=== PATIENT | female | born 1975 | race Caucasian/White ===

== ENCOUNTER 2017-05-20 15:26 | Emergency (ER) | payer SELFPAY ==
[2017-05-20 15:33] VITALS: BP 137/88; PULSE 92; RESP 16; TEMP 97.5
--- NOTE | 2017-05-20 15:53 | ED ---
General Adult HPI - General Chief complaint: ENT Stated complaint: Insect bite/ Eye area Time Seen by Provider: 05/20/17 15:51 Source: patient, RN notes reviewed, old records reviewed Mode of arrival: ambulatory Limitations: no limitations - History of Present Illness Initial comments: Is a 41-year-old female the ER for reevaluation rash. Patient is rest right side of her face around the right eye. Patient states she believes she was having either Bunger mosquito bite, she was has multiple lesions the left side of her face. Patient does admit to some increased swelling of her right lower eyelid last night. Symptoms for 2 days. Mainly complains of itching, no blurry vision no eye pain. - Related Data Home Medications Medication Instructions Recorded Confirmed Albuterol Inhaler [Ventolin Hfa 2 puff INHALATION RT-Q4H PRN 11/15/15 11/15/15 Inhaler] Allergies Allergy/AdvReac Type Severity Reaction Status Date / Time No Known Allergies Allergy Verified 05/20/17 15:33 Review of Systems ROS Statement: Those systems with pertinent positive or pertinent negative responses have been documented in the HPI. ROS Other: All systems not noted in ROS Statement are negative. Past Medical History Additional Past Medical History / Comment(s): 11/15/15 Pt presented to [facility] ER with chest pain and L shoulder pain. She is being admitted with clinical impression of chest pain. Other HX: migraines, sinus problems. History of Any Multi-Drug Resistant Organisms: None Reported Past Surgical History: Cholecystectomy, Tubal Ligation Additional Past Surgical History / Comment(s): 2009 Lap cholecystectomy, cervix surgery to remove precancerous cells, R foot cyst removed Past Anesthesia/Blood Transfusion Reactions: No Reported Reaction Past Psychological History: Depression Smoking Status: Current every day smoker Past Alcohol Use History: Rare Past Drug Use History: None Reported - Past Family History Father Family Medical History: Cancer, COPD, Liver Disease Additional Family Medical History / Comment(s): Father at age 74 from COPD. He had liver cirrhosis and skin cancer. He was an alcoholic. He was a smoker. Mother Family Medical History: COPD Additional Family Medical History / Comment(s): Mother of COPD at the age of 52 yrs. General Exam Limitations: no limitations General appearance: alert, in no apparent distress Head exam: Present: atraumatic, normocephalic, normal inspection Eye exam: Present: normal appearance, PERRL, EOMI, other (Patient does have periorbital cellulitis). Absent: scleral icterus, conjunctival injection, periorbital swelling ENT exam: Present: normal exam, mucous membranes moist Neck exam: Present: normal inspection. Absent: tenderness, meningismus, lymphadenopathy Respiratory exam: Present: normal lung sounds bilaterally. Absent: respiratory distress, wheezes, rales, rhonchi, stridor Cardiovascular Exam: Present: regular rate, normal rhythm, normal heart sounds. Absent: systolic murmur, diastolic murmur, rubs, gallop, clicks GI/Abdominal exam: Present: soft, normal bowel sounds. Absent: distended, tenderness, guarding, rebound, rigid Extremities exam: Present: normal inspection, full ROM, normal capillary refill. Absent: tenderness, pedal edema, joint swelling, calf tenderness Back exam: Present: normal inspection Neurological exam: Present: alert, oriented X3, CN II-XII intact Psychiatric exam: Present: normal affect, normal mood Skin exam: Present: warm, dry, intact, normal color. Absent: rash Course Vital Signs 05/20/17 15:30 Temperature 97.5 F L Pulse Rate 92 Respiratory 16 Rate Blood Pressure 137/88 O2 Sat by Pulse 98 Oximetry Medical Decision Making - Medical Decision Making 41 female here for evaluation of eye rash, patient doesn't periorbital cellulitis and placed on antibiotics, patient also with ALLERGIC reaction to insect bite, will treat with antihistamines for pruritus Disposition Clinical Impression: Urticaria, Cellulitis of right lower eyelid Disposition: HOME SELF-CARE Condition: Good Instructions: Orbital Cellulitis (ED), Urticaria (ED) Referrals: Laureano Castro MD [Primary Care Provider] - 1-2 days
== END 2017-05-20 16:28 | disposition home or self-care (01) ==
LOC: EC 15:26
DX: H00.032 Abscess of right lower eyelid (principal); L50.9 Urticaria, unspecified; T78.49XA Other allergy, initial encounter; F17.200 Nicotine dependence, unspecified, uncomplicated; W57.XXXA Bitten or stung by nonvenomous insect and other nonvenomous arthropods, initial encounter
CPT/HCPCS: 99282

== ENCOUNTER 2017-11-02 20:58 | Emergency (ER) | payer OTHER ==
[2017-11-02] MEDS ORDERED: IPRATROPIUM-ALBUTEROL 3 ML NEB INHALATION STA (21:50)
[2017-11-02] MEDS ORDERED: SODIUM CHLORIDE 0.9% 1,000 ML IV ONE (22:15)
[2017-11-02 22:26] LABS: Basophils % (A) 0 %; Eosinophils # (A) 0.1 k/uL (0-0.7); Eosinophils % (A) 1 %; HCT 41.3 % (34.0-46.0); HGB 13.2 gm/dL (11.4-16.0); Lymphocytes # (A) 2.3 k/uL (1.0-4.8); Lymphocytes % (A) 29 %; MCH 30.1 pg (25.0-35.0); MCHC 31.9 g/dL (31.0-37.0); MCV 94.3 fL (80.0-100.0); Mean Platelet Volume 7.8; Monocytes # (A) 0.5 k/uL (0-1.0); Monocytes % (A) 6 %; Neutrophils # (A) 4.9 k/uL (1.3-7.7); Neutrophils % (A) 62 %; Platelet Count 194 k/uL (150-450); RBC 4.38 m/uL (3.80-5.40); RDW 13.8 % (11.5-15.5); WBC 7.9 k/uL (3.8-10.6)
[2017-11-02 22:35] LABS: ALT 28 U/L (9-52); AST 23 U/L (14-36); Alkaline Phosphatase 116 U/L (38-126); Anion Gap 12 mmol/L; Blood Urea Nitrogen 15 mg/dL (7-17); Calcium 8.8 mg/dL (8.4-10.2); Carbon Dioxide 24 mmol/L (22-30); Chloride 106 mmol/L (98-107); Glucose 119 mg/dL (74-99); Potassium 4.3 mmol/L (3.5-5.1); Sodium 142 mmol/L (137-145); Total Bilirubin 0.2 mg/dL (0.2-1.3); Total Protein 7.1 g/dL (6.3-8.2)
[2017-11-02 22:39] LABS: D-Dimer 0.86 mg/L FEU (<0.60); Partial Thromboplastin Time 24.8 sec (22.0-30.0); Prothrombin Time 9.8 sec (9.0-12.0)
--- NOTE | 2017-11-02 22:41 | XR ---
EXAMINATION TYPE: XR chest 2V DATE OF EXAM: 11/02/2017 COMPARISON: 11/15/2015 HISTORY: Cough TECHNIQUE: Frontal and lateral views of the chest are obtained. FINDINGS: There is a new minimal infiltrate in the right midlung probably in the right middle lobe c ompared to old exam. Heart and mediastinum are normal. There is no pleural effusion. The pulmonary vascularity is normal. Bony thorax is intact. CONCLUSION: New mild right middle lobe pneumonia compared to old exam.
--- NOTE | 2017-11-02 22:48 | ED ---
SOB HPI - General Chief Complaint: Upper Respiratory Infection Stated Complaint: CHRIS Time Seen by Provider: 11/02/17 21:25 Source: patient Mode of arrival: ambulatory Limitations: no limitations - History of Present Illness Initial Comments: This patient is a 42-year-old woman who presents to be evaluated for cough and dyspnea. The patient's symptoms have been going on for approximately 3 days. The patient states that the very first thing that had come on was nausea and vomiting which went on Sunday night last about 6 hours before resolving. She states that after that she had cough and dyspnea and felt that she may have a little bit of a wheeze going on. She states that the symptoms reminded her of which she would see her mother going through when her mother's COPD flare. Patient does have moderate smoking history but denies previous diagnosis of COPD. Patient denies chest pain. Patient denies any leg pain or swelling though she did have a flight from [place] on Sunday. MD Complaint: shortness of breath, cough Onset/Timin -: days(s) Severity: mild Consistency: constant Improves With: nothing Worsens With: nothing Associated Symptoms: cough Treatments Prior to Arrival: none - Related Data Home Medications Medication Instructions Recorded Confirmed Promethazine/Dextromethorphan 5 ml PO Q6H PRN 11/02/17 11/02/17 [Promethazine-Dm Syrup] Previous Rx's Medication Instructions Recorded Albuterol Inhaler [Ventolin Hfa 1 - 2 puff INHALATION Q6HR PRN #1 11/03/17 Inhaler] inhaler Azithromycin [Zithromax Z-pack] 250 mg PO DIRECTED #6 tab 11/03/17 Allergies Allergy/AdvReac Type Severity Reaction Status Date / Time No Known Allergies Allergy Verified 11/02/17 21:37 Review of Systems ROS Statement: Those systems with pertinent positive or pertinent negative responses have been documented in the HPI. ROS Other: All systems not noted in ROS Statement are negative. Constitutional: Denies: fever, chills Respiratory: Reports: cough, dyspnea. Denies: wheezes, hemoptysis, stridor Cardiovascular: Denies: chest pain, palpitations, orthopnea, edema, syncope Gastrointestinal: Reports: nausea, vomiting. Denies: abdominal pain, diarrhea, melena, hematochezia Genitourinary: Denies: dysuria, hematuria Musculoskeletal: Denies: back pain Skin: Denies: rash Neurological: Denies: headache, weakness, numbness Past Medical History Additional Past Medical History / Comment(s): 11/15/15 Pt presented to [facility] ER with chest pain and L shoulder pain. She is being admitted with clinical impression of chest pain. Other HX: migraines, sinus problems. History of Any Multi-Drug Resistant Organisms: None Reported Past Surgical History: Cholecystectomy, Tubal Ligation Additional Past Surgical History / Comment(s): 2009 Lap cholecystectomy, cervix surgery to remove precancerous cells, R foot cyst removed Past Anesthesia/Blood Transfusion Reactions: No Reported Reaction Past Psychological History: Anxiety, Depression Smoking Status: Current every day smoker Past Alcohol Use History: Rare Past Drug Use History: None Reported - Past Family History Father Family Medical History: Cancer, COPD, Liver Disease Additional Family Medical History / Comment(s): Father at age 74 from COPD. He had liver cirrhosis and skin cancer. He was an alcoholic. He was a smoker. Mother Family Medical History: COPD Additional Family Medical History / Comment(s): Mother of COPD at the age of 52 yrs. General Exam Limitations: no limitations General appearance: alert, in no apparent distress Eye exam: Present: normal appearance. Absent: scleral icterus, conjunctival injection Neck exam: Present: normal inspection Respiratory exam: Present: normal lung sounds bilaterally, wheezes. Absent: respiratory distress, rales, rhonchi, stridor Cardiovascular Exam: Present: regular rate, normal rhythm, normal heart sounds. Absent: systolic murmur, diastolic murmur, rubs, gallop GI/Abdominal exam: Present: soft. Absent: distended, tenderness, guarding, rebound, mass Extremities exam: Present: normal inspection, normal capillary refill. Absent: pedal edema, calf tenderness Back exam: Present: normal inspection. Absent: CVA tenderness (R), CVA tenderness (L) Neurological exam: Present: alert Skin exam: Present: warm, dry, intact, normal color. Absent: rash Course Vital Signs 11/02/17 11/02/17 11/02/17 21:10 21:47 22:01 Temperature 97.8 F Pulse Rate 78 84 Respiratory 20 20 Rate Blood Pressure 142/70 O2 Sat by Pulse 97 Oximetry 11/02/17 22:11 Temperature Pulse Rate 88 Respiratory Rate Blood Pressure O2 Sat by Pulse Oximetry Medical Decision Making - Lab Data Result diagrams: 11/02/17 22:15 11/02/17 22:15 Lab Results 11/02/17 11/02/17 11/02/17 Range/Units 22:15 22:15 22:15 WBC 7.9 (3.8-10.6) k/uL RBC 4.38 (3.80-5.40) m/uL Hgb 13.2 (11.4-16.0) gm/dL Hct 41.3 (34.0-46.0) % MCV 94.3 (80.0-100.0) fL MCH 30.1 (25.0-35.0) pg MCHC 31.9 (31.0-37.0) g/dL RDW 13.8 (11.5-15.5) % Plt Count 194 (150-450) k/uL Neutrophils % 62 % Lymphocytes % 29 % Monocytes % 6 % Eosinophils % 1 % Basophils % 0 % Neutrophils # 4.9 (1.3-7.7) k/uL Lymphocytes # 2.3 (1.0-4.8) k/uL Monocytes # 0.5 (0-1.0) k/uL Eosinophils # 0.1 (0-0.7) k/uL Basophils # 0.0 (0-0.2) k/uL PT 9.8 (9.0-12.0) sec INR 1.0 (<1.2) APTT 24.8 (22.0-30.0) sec D-Dimer 0.86 H (<0.60) mg/L FEU Sodium 142 (137-145) mmol/L Potassium 4.3 (3.5-5.1) mmol/L Chloride 106 (98-107) mmol/L Carbon Dioxide 24 (22-30) mmol/L Anion Gap 12 mmol/L BUN 15 (7-17) mg/dL Creatinine 0.80 (0.52-1.04) mg/dL Est GFR (MDRD) Af Amer >60 (>60 ml/min/1.73 sqM) Est GFR (MDRD) Non-Af >60 (>60 ml/min/1.73 sqM) Glucose 119 H (74-99) mg/dL Calcium 8.8 (8.4-10.2) mg/dL Total Bilirubin 0.2 (0.2-1.3) mg/dL AST 23 (14-36) U/L ALT 28 (9-52) U/L Alkaline Phosphatase 116 (38-126) U/L Troponin I (0.000-0.034) ng/mL Total Protein 7.1 (6.3-8.2) g/dL Albumin 4.0 (3.5-5.0) g/dL Influenza Type A RNA (Not Detectd) Influenza Type B (PCR) (Not Detectd) 11/02/17 11/02/17 Range/Units 22:15 22:15 WBC (3.8-10.6) k/uL RBC (3.80-5.40) m/uL Hgb (11.4-16.0) gm/dL Hct (34.0-46.0) % MCV (80.0-100.0) fL MCH (25.0-35.0) pg MCHC (31.0-37.0) g/dL RDW (11.5-15.5) % Plt Count (150-450) k/uL Neutrophils % % Lymphocytes % % Monocytes % % Eosinophils % % Basophils % % Neutrophils # (1.3-7.7) k/uL Lymphocytes # (1.0-4.8) k/uL Monocytes # (0-1.0) k/uL Eosinophils # (0-0.7) k/uL Basophils # (0-0.2) k/uL PT (9.0-12.0) sec INR (<1.2) APTT (22.0-30.0) sec D-Dimer (<0.60) mg/L FEU Sodium (137-145) mmol/L Potassium (3.5-5.1) mmol/L Chloride (98-107) mmol/L Carbon Dioxide (22-30) mmol/L Anion Gap mmol/L BUN (7-17) mg/dL Creatinine (0.52-1.04) mg/dL Est GFR (MDRD) Af Amer (>60 ml/min/1.73 sqM) Est GFR (MDRD) Non-Af (>60 ml/min/1.73 sqM) Glucose (74-99) mg/dL Calcium (8.4-10.2) mg/dL Total Bilirubin (0.2-1.3) mg/dL AST (14-36) U/L ALT (9-52) U/L Alkaline Phosphatase (38-126) U/L Troponin I <0.012 (0.000-0.034) ng/mL Total Protein (6.3-8.2) g/dL Albumin (3.5-5.0) g/dL Influenza Type A RNA Not Detected (Not Detectd) Influenza Type B (PCR) Detected H (Not Detectd) Disposition Clinical Impression: Pneumonia Disposition: HOME SELF-CARE Condition: Good Instructions: Pneumonia (ED) Prescriptions: Albuterol Inhaler [Ventolin Hfa Inhaler] 1 - 2 puff INHALATION Q6HR PRN #1 inhaler PRN Reason: Wheezing Azithromycin [Zithromax Z-pack] 250 mg PO DIRECTED #6 tab Referrals: Hang Sheth MD [Primary Care Provider] - 1-2 days
[2017-11-02] MEDS ORDERED: RX INFO: IV CONTRAST WAS GIVEN 1 EACH MISC MISCELLANE PRN (23:05)
[2017-11-02] MEDS ORDERED: cefTRIAXone IN SWFI 1,000 MG/10 ML SYRINGE IVP STA (23:06)
[2017-11-02] MEDS ORDERED: AZITHROMYCIN 500 MG TAB PO STA (23:06)
--- NOTE | 2017-11-02 23:37 | CT ---
EXAMINATION TYPE: CT chest angio for PE DATE OF EXAM: 11/02/2017 COMPARISON: NONE HISTORY: COGH,CONGESTION, ELEVATED D-DIMER CT DLP: 490.80 mGycm Automated exposure control for dose reduction was used. CONTRAST: CT Chest for pulmonary embolism performed with with IV Contrast, patient injected with 70 mL of Omnip aque 350. FINDINGS: There are 3-D post processed images. The lungs are clear of consolidation. There is no evidence of a pulmonary mass. There is no pleural e ffusion. There are enlarged mediastinal paratracheal lymph nodes. The largest measures 1.5 cm. Thoracic aorta is intact. There is no sign of aneurysm or dissection. There are bilateral bronchial lymph nodes that measure up to 1.1 cm. Heart size is normal. There is no pericardial effusion. There is some patchy r eticular and groundglass interstitial infiltrate in the right middle lobe. I see no filling defects in the pulmonary arteries. The bony thorax is intact. IMPRESSION: No evidence of pulmonary embolism. There is a patchy right middle lobe pulmonary infiltrate probably related to pneumonia. Mild mediastinal and bronchial adenopathy.
[2017-11-03 00:56] VITALS: BP 173/76; PULSE 88; RESP 17; TEMP 97.5
== END 2017-11-03 00:56 | disposition home or self-care (01) ==
LOC: EC 20:58
DX: J18.9 Pneumonia, unspecified organism (principal); F17.200 Nicotine dependence, unspecified, uncomplicated
CPT/HCPCS: 36415; 94640; 85379; 80053; 84484; 85025; 85610; 85730; 87502; 71046; 71275; 99284; 96374; 96361; Q9967; J0696

== ENCOUNTER 2019-07-12 19:11 | Emergency (ER) | payer OTHER ==
[2019-07-12 19:23] VITALS: RESP 18
[2019-07-12] MEDS ORDERED: SODIUM CHLORIDE 0.9% 1,000 ML IV STA (19:43)
[2019-07-12] MEDS ORDERED: diphenhydrAMINE 50 MG/ML 1 ML VIAL IVP STA (19:43)
[2019-07-12] MEDS ORDERED: METOCLOPRAMIDE 5 MG/ML 2 ML VIAL IVP STA (19:43)
--- NOTE | 2019-07-12 20:06 | ED ---
General Adult HPI - General Chief complaint: Headache Stated complaint: migraine Time Seen by Provider: 07/12/19 19:24 Source: patient, RN notes reviewed Mode of arrival: ambulatory Limitations: no limitations - History of Present Illness Initial comments: 44-year-old female with a past medical history of migraines, sinusitis presents to the emergency department for a chief complaint of headache. Patient states this headache started Sunday. States that she has pain only with walking. States her baseline pain resting at this time is 2 out of 10. However she states that with walking it increases. Patient has a history of migraines. Patient does admit to sinus congestion. Denies visual changes. Denies maximal intensity at onset. Admits to light sensitivity. Patient has no other complaints at this time including shortness of breath, chest pain, abdominal pain, nausea or vomiting, or visual changes. - Related Data Home Medications Medication Instructions Recorded Confirmed Promethazine/Dextromethorphan 5 ml PO Q6H PRN 11/02/17 11/02/17 [Promethazine-Dm Syrup] Previous Rx's Medication Instructions Recorded Albuterol Inhaler [Ventolin Hfa 1 - 2 puff INHALATION Q6HR PRN #1 11/03/17 Inhaler] inhaler Azithromycin [Zithromax Z-pack] 250 mg PO DIRECTED #6 tab 11/03/17 Allergies Allergy/AdvReac Type Severity Reaction Status Date / Time No Known Allergies Allergy Verified 07/12/19 19:23 Review of Systems ROS Statement: Those systems with pertinent positive or pertinent negative responses have been documented in the HPI. ROS Other: All systems not noted in ROS Statement are negative. Past Medical History Past Medical History: No Reported History Additional Past Medical History / Comment(s): 11/15/15 Pt presented to [facility] ER with chest pain and L shoulder pain. She is being admitted with clinical impression of chest pain. Other HX: migraines, sinus problems. History of Any Multi-Drug Resistant Organisms: None Reported Past Surgical History: Cholecystectomy, Tubal Ligation Additional Past Surgical History / Comment(s): 2009 Lap cholecystectomy, cervix surgery to remove precancerous cells, R foot cyst removed Past Anesthesia/Blood Transfusion Reactions: No Reported Reaction Past Psychological History: Anxiety, Depression Smoking Status: Current every day smoker Past Alcohol Use History: None Reported Past Drug Use History: None Reported - Past Family History Father Family Medical History: Cancer, COPD, Liver Disease Additional Family Medical History / Comment(s): Father at age 74 from COPD. He had liver cirrhosis and skin cancer. He was an alcoholic. He was a smoker. Mother Family Medical History: COPD Additional Family Medical History / Comment(s): Mother of COPD at the age of 52 yrs. General Exam Limitations: no limitations General appearance: alert, in no apparent distress Head exam: Present: atraumatic, normocephalic, normal inspection Eye exam: Present: normal appearance, PERRL, EOMI. Absent: scleral icterus, conjunctival injection, periorbital swelling ENT exam: Present: normal exam, normal oropharynx, mucous membranes moist, TM's normal bilaterally, normal external ear exam Neck exam: Present: normal inspection, full ROM. Absent: tenderness, meningismus, lymphadenopathy Respiratory exam: Present: normal lung sounds bilaterally. Absent: respiratory distress, wheezes, rales, rhonchi, stridor Cardiovascular Exam: Present: regular rate, normal rhythm, normal heart sounds. Absent: systolic murmur, diastolic murmur, rubs, gallop, clicks Neurological exam: Present: alert, oriented X3, CN II-XII intact, normal gait, other (GCS 15) Psychiatric exam: Present: normal affect, normal mood Course Vital Signs 07/12/19 07/12/19 19:20 20:00 Temperature 98.0 F Pulse Rate 101 H Respiratory 18 Rate Blood Pressure 123/70 O2 Sat by Pulse 95 98 Oximetry Medical Decision Making - Medical Decision Making 44-year-old female presents for headache. Patient has had migraines before. This does feel slightly different. However patient rates her pain at a 2 out of 10 with rest. States it increases with walking only. Blood work was done. CBC shows a mild psychosis, likely reactive. CMP is unremarkable. CT brain shows no acute intracranial process. Patient was given fluids, Reglan, Benadryl. I reevaluated patient and she states her pain at a 0 with rest. I walked with patient down the hallway and she states that she has no recurrence of the pain like she did before. States she is feeling much better. Has no other complaints and again rating her pain at a 0. In fact patient was offered T oradol and refused because she did not need it. Patient will be discharged home to follow up with primary care. However did discuss strict return parameters. - Lab Data Result diagrams: 07/12/19 20:00 07/12/19 20:00 Lab Results 07/12/19 07/12/19 07/12/19 Range/Units 20:00 20:00 20:00 WBC 14.2 H (3.8-10.6) k/uL RBC 4.46 (3.80-5.40) m/uL Hgb 13.4 (11.4-16.0) gm/dL Hct 40.3 (34.0-46.0) % MCV 90.3 (80.0-100.0) fL MCH 30.1 (25.0-35.0) pg MCHC 33.4 (31.0-37.0) g/dL RDW 13.9 (11.5-15.5) % Plt Count 316 (150-450) k/uL Neutrophils % 58 % Lymphocytes % 34 % Monocytes % 4 % Eosinophils % 2 % Basophils % 1 % Neutrophils # 8.2 H (1.3-7.7) k/uL Lymphocytes # 4.8 (1.0-4.8) k/uL Monocytes # 0.5 (0-1.0) k/uL Eosinophils # 0.3 (0-0.7) k/uL Basophils # 0.1 (0-0.2) k/uL PT 9.6 (9.0-12.0) sec INR 0.9 (<1.2) APTT 24.3 (22.0-30.0) sec Sodium 139 (137-145) mmol/L Potassium 5.0 (3.5-5.1) mmol/L Chloride 109 H (98-107) mmol/L Carbon Dioxide 24 (22-30) mmol/L Anion Gap 6 mmol/L BUN 12 (7-17) mg/dL Creatinine 0.66 (0.52-1.04) mg/dL Est GFR (CKD-EPI)AfAm >90 (>60 ml/min/1.73 sqM) Est GFR (CKD-EPI)NonAf >90 (>60 ml/min/1.73 sqM) Glucose 105 H (74-99) mg/dL Calcium 9.4 (8.4-10.2) mg/dL Total Bilirubin 0.3 (0.2-1.3) mg/dL AST 23 (14-36) U/L ALT 14 (9-52) U/L Alkaline Phosphatase 111 (38-126) U/L Total Protein 7.4 (6.3-8.2) g/dL Albumin 4.0 (3.5-5.0) g/dL Disposition Clinical Impression: Headache Disposition: HOME SELF-CARE Condition: Good Instructions (If sedation given, give patient instructions): Acute Headache (ED) Additional Instructions: Please take Tylenol for pain. Follow-up with primary care in 1-2 days. If youre having worsening symptoms or have recurrence of headaches return to the emergency department. Is patient prescribed a controlled substance at d/c from ED?: No Referrals: Hang Sheth MD [Primary Care Provider] - 1-2 days Time of Disposition: 21:05
[2019-07-12 20:10] LABS: Basophils # (A) 0.1 k/uL (0-0.2); Basophils % (A) 1 %; Eosinophils # (A) 0.3 k/uL (0-0.7); Eosinophils % (A) 2 %; HCT 40.3 % (34.0-46.0); HGB 13.4 gm/dL (11.4-16.0); Lymphocytes # (A) 4.8 k/uL (1.0-4.8); Lymphocytes % (A) 34 %; MCH 30.1 pg (25.0-35.0); MCHC 33.4 g/dL (31.0-37.0); MCV 90.3 fL (80.0-100.0); Mean Platelet Volume 6.6; Monocytes # (A) 0.5 k/uL (0-1.0); Monocytes % (A) 4 %; Neutrophils # (A) 8.2 k/uL (1.3-7.7); Neutrophils % (A) 58 %; Platelet Count 316 k/uL (150-450); RBC 4.46 m/uL (3.80-5.40); RDW 13.9 % (11.5-15.5); WBC 14.2 k/uL (3.8-10.6)
--- NOTE | 2019-07-12 20:17 | CT ---
EXAMINATION TYPE: CT brain wo con DATE OF EXAM: 07/12/2019 COMPARISON: 11/09/2014 INDICATION: CALZADA x3 days DLP: 1099.4 mGycm, Automated exposure control for dose reduction was used. CONTRAST: None CT of the brain is performed utilizing 3 mm thick sections through the posterior fossa and 3 mm thick sections through the remaining calvarium. Study is performed within 24 hours of arrival to the hosp [facility]. No abnormal hyperdensity is present to suggest an acute intracranial hemorrhage. No mass lesion is evident. No acute infarcts are evident. Ventricles and sulci are appropriate for the patient age. Paranasal sinuses and mastoid air cells within the [id number] are clear. IMPRESSIONS: 1. No acute intracranial process.
[2019-07-12 20:19] LABS: ALT 14 U/L (9-52); AST 23 U/L (14-36); African American GFR (CKD) >90 (>60 ml/min/1.73 sqM); Alkaline Phosphatase 111 U/L (38-126); Anion Gap 6 mmol/L; Blood Urea Nitrogen 12 mg/dL (7-17); Calcium 9.4 mg/dL (8.4-10.2); Carbon Dioxide 24 mmol/L (22-30); Chloride 109 mmol/L (98-107); Glucose 105 mg/dL (74-99); INR 0.9 (<1.2); Partial Thromboplastin Time 24.3 sec (22.0-30.0); Prothrombin Time 9.6 sec (9.0-12.0); Sodium 139 mmol/L (137-145); Total Bilirubin 0.3 mg/dL (0.2-1.3); Total Protein 7.4 g/dL (6.3-8.2)
[2019-07-12] MEDS ORDERED: KETOROLAC 30 MG/ML 1 ML VIAL IVP STA (20:29)
[2019-07-12 21:14] VITALS: BP 113/67; PULSE 70; TEMP 98
== END 2019-07-12 21:13 | disposition home or self-care (01) ==
LOC: EC 19:11
DX: R51 Headache (principal); F29 Unspecified psychosis not due to a substance or known physiological condition; F17.200 Nicotine dependence, unspecified, uncomplicated; Z86.69 Personal history of other diseases of the nervous system and sense organs
CPT/HCPCS: 36415; 80053; 85025; 85610; 85730; 70450; 99284; 96374; 96375; 96361; J1200; J2765

== ENCOUNTER → 2020-08-18 | Outpatient (CLI) | payer BC, OTHER | END | disposition home or self-care (01) | LOC: LABWHC1 11:33 | PROVIDERS: ATTEND Nurse Practitioner Family | DX: Z20.828 Contact with and (suspected) exposure to other viral communicable diseases (principal) | CPT/HCPCS: U0003; C9803 ==

== ENCOUNTER → 2023-12-18 | Outpatient (CLI) | payer BC ==
--- NOTE | 2023-12-20 09:40 | MM ---
Reason for Exam: Screening (asymptomatic). Patient History: Menarche at age 13. First Full-Term at age 24. Perimenopausal. Risk Values: Mariely 5 year model risk: 0.8%. NCI Lifetime model risk: 8.4%. Tissue Density: There are scattered areas of fibroglandular density. Findings: Analyzed By CAD. There is no suspicious group of microcalcifications. Asymmetric density inner central right breast approximately 4.3 cm from the nipple requires additional evaluation. Overall Assessment: Incomplete: need additional imaging evaluation, BI-RAD 0 Management: Diagnostic Mammogram of the right breast. . Patient should continue monthly self-breast exams. A clinical breast exam by your physician is recommended on an annual basis. This exam should not preclude additional follow-up of suspicious palpable abnormalities. Note on Mariely scores and lifetime risk: 1. A Mariely score greater than 3% is considered moderate risk. If this is the case, consider specialist referral to assess eligibility for a risk reducing agent. 2. If overall lifetime risk for the development of breast cancer is 20% or higher, the patient may qualify for future screening with alternating mammogram and breast MRI. Electronically signed and approved by: Faizan Yancey M.D. Radiologis
== END | disposition home or self-care (01) ==
LOC: RADMAMWWP 15:57
PROVIDERS: ATTEND Family Medicine
DX: Z12.31 Encounter for screening mammogram for malignant neoplasm of breast (principal)
CPT/HCPCS: 77063; 77067

== ENCOUNTER → 2023-12-21 | Outpatient (CLI) | payer BC ==
--- NOTE | 2023-12-21 08:00 | MM ---
Reason for Exam: Additional evaluation requested from abnormal screening. Last screening mammogram was performed less than 1 month ago. Patient History: Menarche at age 13. First Full-Term at age 24. Perimenopausal. Last menstrual period: 12/05/2023 Risk Values: Mariely 5 year model risk: 0.8%. NCI Lifetime model risk: 8.4%. Prior Study Comparison: 12/18/2023 Bilateral MG 3D screening mammo w/cad, [facility]. Tissue Density: Right: There are scattered areas of fibroglandular density. Findings: Analyzed By CAD. Approximately 6.5 cm from the nipple in her upper quadrant approximately 1-2 o'clock is an 8 mm persistent density. Ultrasound is recommended. Overall Assessment: Incomplete: need additional imaging evaluation, BI-RAD 0 Management: Diagnostic Breast Ultrasound of the right breast. . Results were given to the patient verbally at the time of exam. Patient should continue monthly self-breast exams. A clinical breast exam by your physician is recommended on an annual basis. This exam should not preclude additional follow-up of suspicious palpable abnormalities. Note on Mariely scores and lifetime risk: 1. A Mariely score greater than 3% is considered moderate risk. If this is the case, consider specialist referral to assess eligibility for a risk reducing agent. 2. If overall lifetime risk for the development of breast cancer is 20% or higher, the patient may qualify for future screening with alternating mammogram and breast MRI. Electronically signed and approved by: Faizan Yancey M.D. Radiologis
--- NOTE | 2023-12-21 08:45 | USB ---
Reason for Exam: Additional evaluation requested from abnormal screening. Patient History: Menarche at age 13. First Full-Term at age 24. Perimenopausal. Risk Values: Mariely 5 year model risk: 0.8%. NCI Lifetime model risk: 8.4%. Technique: Method: Targeted. Prior Study Comparison: 12/18/2023 Bilateral MG 3D screening mammo w/cad, [facility]. Findings: The upper inner quadrant of the right breast, the axilla of the right breast and the retroareolar of the right breast were scanned. Vague, fairly well marginated hypoechoic lesion at the right 1:00 position 6 cm from the nipple measuring 9 x 4 mm. Tissue diagnosis is recommended. Overall Assessment: Suspicious, BI-RAD 4 Management: Ultrasound Core Biopsy of the right breast. A clinical breast exam by your physician is recommended on an annual basis and results should be correlated with mammographic findings. This exam should not preclude additional follow-up of suspicious palpable abnormalities. Results were given to the patient verbally at the time of exam. Electronically signed and approved by: Haroldo Lopez D.O. Radiologis
== END | disposition home or self-care (01) ==
LOC: RADMAMWWP 07:35
PROVIDERS: ATTEND Family Medicine
DX: R92.321 Mammographic fibroglandular density, right breast (principal)
CPT/HCPCS: 77061; 77065

== ENCOUNTER → 2023-12-31 | Day surgery (SDC) | payer BC ==
--- NOTE | 2024-01-04 08:35 | MM ---
Reason for Exam: Post Procedure Mammogram. Last screening mammogram was performed less than 1 month ago. Patient History: Menarche at age 13. First Full-Term at age 24. Perimenopausal. Risk Values: Mariely 5 year model risk: 0.8%. NCI Lifetime model risk: 8.4%. Prior Study Comparison: 12/18/2023 Bilateral MG 3D screening mammo w/cad, [facility]. 12/21/2023 Right MG 3D work up w/cad RT, [facility]. Tissue Density: Right: There are scattered areas of fibroglandular density. Pathology Description: Location: 1 o'clock, upper inner quadrant. Marker Left Behind. Needle Type: Mammotome Cores: 4 Skin Nicks: 1 Gauge: 13 The procedure of ultrasound guided core biopsy was explained to the patient. Benefits, alternatives, and risks were discussed. An informed consent was then obtained. A timeout was performed. The patient was placed in supine positioning for imaging and for the procedure. The overlying skin was prepped and draped in usual sterile fashion. Lidocaine was used as anesthetic into the skin and subcutaneous tissue up to area of concern in the right breast. A small skin les was made with surgical scalpel. Under ultrasound guidance, a 12-gauge vacuum assisted biopsy gun device was used to obtain 4 core samples. A biopsy clip was left in lesion. Hydromark butterfly core marker was placed. The patient tolerated the procedure well without any immediate complication. The patient was kept in the radiology department for short stay after the procedure and then discharged home in stable condition. Postprocedure mammogram: The patient was transferred to mammography for physician ordered post procedure mammogram for clip placement verification. Clip is in the expected region of the biopsy Impression: Successful ultrasound guided core biopsy of area of concern in the right breast, full pathology results to follow. Recommendations: 1. Recommendations are pending pathology results. Pathology Results: Result: Benign, Fibrocystic change. Pathology and radiology were reviewed. Findings are concordant. RIGHT BREAST, 1:00, ULTRASOUND GUIDED CORE BIOPSY: Proliferative fibrocystic change with fibrosis, columnar cell change and adenosis (see note). Notes Per EMR: it is noted the patient has imaging evidence of a vague lesion/density within the approximate 1:00 position of the right breast. The current specimen shows fibrocystic change with nodular areas of adenosis associated with mild chronic inflammation. The current case is carefully examined, and there are no diagnostic features of malignancy seen within the current case. Clinical correlation with imaging studies is suggested, as deemed clinically appropriate. Overall Assessment: Benign Assessment: MG diagnostic mammo RT wo CAD - Right: Benign, BI-RAD 2. Management: Diagnostic Mammogram of the right breast in 6 months. Electronically signed and approved by: Haroldo Lopez D.O. Radiologis
== END ==
LOC: RADUSWWP 12:36
PROVIDERS: ATTEND Surgery
DX: N60.21 Fibroadenosis of right breast (principal)
CPT/HCPCS: 88305; 77065; 19083; A4648

== ENCOUNTER → 2024-01-10 | Outpatient (CLI) | payer BC ==
[2024-01-10 09:27] VITALS: BP 180/93; PULSE 87; RESP 17; TEMP 98.4
--- NOTE | 2024-01-10 09:45 | P.GSCN ---
History of Present Illness Consult date: 01/10/24 Reason for Consult: abnormal right breast ultrasound Requesting physician: Hang Sheth History of present illness: Cris is a 48 year old female seen in consultation for Dr. Hang Sheth regarding a right breast ultrasound biopsy done on 12-31-23. She had a bilateral mammogram on 12-18-23, which led to a right breast ultrasound on 12-21-23. No lesions of concern were noted in the left breast. The right breast u ltrasound was done on 01-20-24 which showed a vague hypoechoic lesion at 1:00. Ultrasound core biopsy showed benign fibrocystic changes, this was felt to be benign concordant. The films were personally reviewed. The patient did not feel any lumps masses or nodules of concern in either breast. She has never had surgery on either breast. She did not have any recent trauma or infection in the breast. She was not complaining of any nipple discharge or skin changes. Caffeine: 2 cups/day, pop 20 oz/daily nicotine: 1 PPD since chocolate: occasional BCP: none Family History: father: skin and bone cancer patient: pre-cancer cells on cervix Hormonal History: menarche: 13 , breast fed: no, age at first : 23 periods irregular;LMP: 2 weeks ago hormones: none Surgical History: right foot cervix part removed gallbladder tubal Medical History: anxiety obesity History: Nicotine: 1 pack/day Alcohol: Negative Drugs: Negative Review of Systems - Constitutional Denies fever, Denies weight loss - EENT EENT Comment(s): cataract surgery Eyes: right blurred vision Ears: deny: decreased hearing, tinnitus Ears, nose, mouth and throat: Reports headache - Breasts bilateral: as per HPI - Cardiovascular Reports chest pain, Reports shortness of breath - Respiratory Respiratory Comment(s): smoker Reports cough - Gastrointestinal Reports as per HPI - Genitourinary Genitourinary: Denies dysuria, Denies hematuria Menstruation: Reports cycle variable - Musculoskeletal Reports as per HPI - Integumentary Denies rash, Denies unusual bruising - Neurological Denies headaches, Denies syncope - Psychiatric Reports anxiety - Endocrine Reports fatigue - Hematologic/Lymphatic Denies easy bleeding, Denies easy bruising - Allergic/Immunologic Reports as per HPI Past Medical History Past Medical History: No Reported History Additional Past Medical History / Comment(s): 11/15/15 Pt presented to [facility] ER with chest pain and L shoulder pain. She is being admitted with clinical impression of chest pain. Other HX: migraines, sinus problems. History of Any Multi-Drug Resistant Organisms: None Reported Past Surgical History: Cholecystectomy, Tubal Ligation Additional Past Surgical History / Comment(s): 2009 Lap cholecystectomy, cervix surgery to remove precancerous cells, R foot cyst removed Past Anesthesia/Blood Transfusion Reactions: No Reported Reaction Past Psychological History: Anxiety, Depression Additional Psychological History / Comment(s): Pt resides with her spouse and 2 children ages 15 and 16yrs. She is independent. She uses no assistive device. She drives. Smoking Status: Current every day smoker Past Alcohol Use History: None Reported Additional Past Alcohol Use History / Comment(s): Pt smokes 1 ppd. She started smoking in 1993 Past Drug Use History: None Reported - Past Family History Father Family Medical History: Cancer, COPD, Liver Disease Additional Family Medical History / Comment(s): Father at age 74 from COPD. He had liver cirrhosis and skin cancer. He was an alcoholic. He was a smoker. Mother Family Medical History: COPD Additional Family Medical History / Comment(s): Mother of COPD at the age of 52 yrs. Medications and Allergies Home Medications Medication Instructions Recorded Confirmed Type Rosuvastatin Calcium 5 mg PO DAILY 12/21/23 01/10/24 History Allergies Allergy/AdvReac Type Severity Reaction Status Date / Time No Known Allergies Allergy Verified 01/10/24 09:15 Surgical - Exam Vital Signs Temp Pulse Resp BP Pulse Ox 98.4 F 87 17 180/93 97 01/10/24 09:16 01/10/24 09:16 01/10/24 09:16 01/10/24 09:16 01/10/24 09:16 Patient Seen Date: 01/10/24 - General Patient has herstuism requiring shaving/ facial and chin hair moderate distress - Eyes normal ocular movement - ENT no hearing loss - Neck trachea midline - Respiratory normal respiratory effort, clear to auscultation - Cardiovascular Heart Sounds: normal: S1, S2 - Abdomen Abdomen: soft, non tender, no guarding, no rigid, no rebound - Integumentary normal turgor - Neurologic no disoriented, no combative - Musculoskeletal normal gait - Psychiatric oriented to time, oriented to person, oriented to place, speech is normal, memory intact Breast Exam: BRA: 40D Inspection: Bilateral grade 3 ptosis Palpation: Right breast: Mild ecchymosis related to recent biopsy, no discrete dominant masses or nodules of concern on Multi positional exam Right axilla: No adenopathy of concern Left breast: Multi positional exam no dominant masses or nodules of concern Left axilla: No adenopathy of concern Results mammogram and ultrasound reviewed Pathology report reviewed Assessment and Plan Assessment: Impression: Benign concordant right breast biopsy Hirstuism Plan: Repeat right breast mammogram and ultrasound in 6 months with examination at that time Consider endocrine evaluation secondary to facial hair Follow-up with Dr. Hang Sheth Follow-up here in 6 months follow up after lab studies/ testosterone, estrogen, progesterone, cortisol encouraged to stop smoking CC: Dr. Hang Sheth
[2024-01-10 17:42] LABS: Testosterone 37.8 ng/dL (9.01-47.94)
== END ==
LOC: WWCWWP 08:47
PROVIDERS: ATTEND Surgery
DX: R92.8 Other abnormal and inconclusive findings on diagnostic imaging of breast (principal); L68.0 Hirsutism; N60.11 Diffuse cystic mastopathy of right breast; D24.1 Benign neoplasm of right breast; F17.210 Nicotine dependence, cigarettes, uncomplicated
CPT/HCPCS: 36415; 82533; 82672; 84144; 84402; 84403

== ENCOUNTER → 2024-01-24 | Outpatient (CLI) | payer BC ==
[2024-01-24 12:55] VITALS: BP 139/76; PULSE 90; RESP 20; TEMP 97.8
--- NOTE | 2024-01-24 13:07 | P.PN ---
Subjective Progress Note Date: 01/24/24 Cris is a 48 year old female seen in consultation for Dr. Hang Sheth regarding a right breast ultrasound biopsy done on 12-31-23. She had a bilateral mammogram on 12-18-23, which led to a right breast ultrasound on 12-21-23. No lesions of concern were noted in the left breast. The right breast ultrasound was done on 01-20-24 which showed a vague hypoechoic lesion at 1:00. Ultrasound core biopsy showed benign fibrocystic changes, this was felt to be benign concordant. The films were personally reviewed. The patient did not feel any lumps masses or nodules of concern in either breast. She has never had surgery on either breast. She did not have any recent trauma or infection in the breast. She was not complaining of any nipple discharge or skin changes. The patient was noted to have hirsturism on her last visit. She underwent laboratory value testing of testosterone, estrogen, progesterone, and cortisol. All these laboratory values were within normal limits. She is instructed to follow-up with her primary care doctor and potentially endocrinology with respect to this. She comes in today fro these results. Estrogen: 145 free testosterone 1.2 progesterone and cortisol WNL plan: repeat right brest mammogram dn ultrasound in 6 months consider endocrine evaluation follow up Hang Sheth follwo up here in 6 months CC: Dr. Hang Sheth Objective - Vital Signs Vital signs: Vital Signs Temp 97.8 F 01/24/24 12:34 Pulse 90 01/24/24 12:34 Resp 20 01/24/24 12:34 BP 139/76 01/24/24 12:34 Pulse Ox 98 01/24/24 12:34 FiO2 Intake & Output 01/23/24 01/24/24 01/24/24 18:59 06:59 18:59 Weight 96.615 kg
== END ==
LOC: WWCWWP 12:16
PROVIDERS: ATTEND Surgery
DX: Z04.89 Encounter for examination and observation for other specified reasons (principal); R92.8 Other abnormal and inconclusive findings on diagnostic imaging of breast; N60.11 Diffuse cystic mastopathy of right breast; L68.0 Hirsutism; F17.200 Nicotine dependence, unspecified, uncomplicated

== ENCOUNTER 2024-09-09 18:16 | Inpatient (IN) | payer BC ==
--- NOTE | 2024-09-09 19:39 | ED ---
General Adult HPI - General Chief complaint: Shortness of Breath Stated complaint: chest pain/SOB Time Seen by Provider: 09/09/24 19:37 Source: patient, family, RN notes reviewed Mode of arrival: ambulatory Limitations: no limitations - History of Present Illness Initial comments: 49-year-old female presenting to the ER with chief complaint of cough x 3 days. Patient states that cough is productive and is associated with shortness of breath. She was seen at urgent care last night where they diagnosed her with a lung infection and started her on antibiotics. Patient has taken 2 doses but reports no relief. Chest x-ray or viral swabs were not performed at urgent care. Patient is a current smoker. Denies any other health conditions. - Related Data Home Medications Medication Instructions Recorded Confirmed Rosuvastatin Calcium 5 mg PO DAILY 12/21/23 01/24/24 Allergies Allergy/AdvReac Type Severity Reaction Status Date / Time No Known Allergies Allergy Verified 09/09/24 18:38 Review of Systems ROS Statement: Those systems with pertinent positive or pertinent negative responses have been documented in the HPI. ROS Other: All systems not noted in ROS Statement are negative. Past Medical History Past Medical History: No Reported History Additional Past Medical History / Comment(s): 11/15/15 Pt presented to [facility] ER with chest pain and L shoulder pain. She is being admitted with clinical impression of chest pain. Other HX: migraines, sinus problems. History of Any Multi-Drug Resistant Organisms: None Reported Past Surgical History: Cholecystectomy, Tubal Ligation Additional Past Surgical History / Comment(s): 2009 Lap cholecystectomy, cervix surgery to remove precancerous cells, R foot cyst removed Past Anesthesia/Blood Transfusion Reactions: No Reported Reaction Past Psychological History: Anxiety, Depression Smoking Status: Current every day smoker Past Alcohol Use History: Rare Past Drug Use History: None Reported - Past Family History Father Family Medical History: Cancer, COPD, Liver Disease Additional Family Medical History / Comment(s): Father at age 74 from COPD. He had liver cirrhosis and skin cancer. He was an alcoholic. He was a smoker. Mother Family Medical History: COPD Additional Family Medical History / Comment(s): Mother of COPD at the age o f 52 yrs. General Exam Limitations: no limitations General appearance: alert, in no apparent distress Respiratory exam: Present: normal lung sounds bilaterally. Absent: respiratory distress, wheezes, rales, rhonchi, stridor, accessory muscle use Cardiovascular Exam: Present: regular rate, normal rhythm, normal heart sounds. Absent: systolic murmur, diastolic murmur, rubs, gallop, clicks Neurological exam: Present: alert, oriented X3 Psychiatric exam: Present: normal affect, normal mood Skin exam: Present: warm, dry, intact, normal color. Absent: rash Course Vital Signs 09/09/24 18:34 Temperature 98.7 F Pulse Rate 96 Respiratory 20 Rate Blood Pressure 155/81 O2 Sat by Pulse 97 Oximetry EKG Findings - EKG Results: EKG: interpreted by [facility] (EKG reveals normal sinus rhythm with no ST changes. Ventricular rate 98 bpm, DE interval 152, QRS duration 92, QT/QTc 368/423) Medical Decision Making - Medical Decision Making Was pt. sent in by a medical professional or institution (, PA, FED[employer]AL [employer]IATION COMMISSIONER, urgent care, hospital, or shelter...) When possible be specific @ -No Did you speak to anyone other than the patient for history (EMS, parent, family, police, friend...)? What history was obtained from this source @ -No Did you review nursing and triage notes (agree or disagree)? Why? @ -I reviewed and agree with nursing and triage notes Were old charts reviewed (outside hosp., previous admission, EMS record, old EKG, old radiological studies, urgent care reports/EKG's, shelter records)? Report findings @ -No old charts were reviewed Differential Diagnosis (chest pain, altered mental status, abdominal pain women, abdominal pain men, vaginal bleeding, weakness, fever, dyspnea, syncope, headache, dizziness, GI bleed, back pain, seizure, CVA, palpatations, mental health, musculoskeletal)? @ -Differential Dyspnea: Coronary syndrome, arrhythmia, tamponade, asthma, COPD, pulmonary embolism, pneumonia, pneumothorax, pulmonary effusion, anaphylaxis, diabetic ketoacidosis, flailed chest, pulmonary contusion, diaphragmatic rupture, anemia, neuromuscular, this is not meant to be an all-inclusive list. EKG interpreted by me (3pts min.). @ -As above X-rays interpreted by me (1pt min.). @ -Chest x-ray reveals cardiomegaly and interstitial opacities bilaterally CT interpreted by me (1pt min.). @ -None done U/S interpreted by me (1pt. min.). @ -None done What testing was considered but not performed or refused? (CT, X-rays, U/S, labs)? Why? @ -None What meds were considered but not given or refused? Why? @ -None Did you discuss the management of the patient with other professionals (professionals i.e. , PA, FED[employer]AL MEDIATION COMMISSIONER, lab, RT, psych nurse, nursing home social worker, impregnator and drier, teacher, tactical debriefer officer, manager of case)? Give summary @ -I spoke with Mayte from [facility] who accepts admission Was smoking cessation discussed for >3mins.? @ -No Was critical care preformed (if so, how long)? @ -No Were there social determinants of health that impacted care today? How? (Homelessness, low income, unemployed, alcoholism, drug addiction, transportation, low edu. Level, literacy, decrease access to med. care, detention, rehab)? @ -No Was there de-escalation of care discussed even if they declined (Discuss DNR or withdrawal of care, Hospice)? DNR status @ -No What co-morbidities impacted this encounter? (DM, HTN, Smoking, COPD, CAD, Cancer, CVA, ARF, Chemo, Hep., AIDS, mental health diagnosis, sleep apnea, morbid obesity)? @ -None Was patient admitted / discharged? Hospital course, mention meds given and route, prescriptions, significant lab abnormalities, going to OR and other pertinent info. @ -Admitted. This is a 49-year-old female with no significant past medical history presenting for cough x 3 days with shortness of breath. Vital signs within acceptable limits. Afebrile satting 97% on room air. Chest x-ray reveals cardiomegaly and interstitial opacities bilaterally. Viral swabs negative. Lab work remarkable for leukocytosis of 14 with left shift, elevated liver enzymes, and BNP 2260. I spoke with Mayte from [facility] who accepts admission for pneumonia. Case was discussed with my ED attending Dr. Hillman. Undiagnosed new problem with uncertain prognosis? @ -No Drug Therapy requiring intensive monitoring for toxicity (Heparin, Nitro, Insulin, Cardizem)? @ -No Were any procedures done? @ -No Diagnosis/symptom? @ -Pneumonia Acute, or Chronic, or Acute on Chronic? @ -Acute Uncomplicated (without systemic symptoms) or Complicated (systemic symptoms)? @ -Uncomplicated Side effects of treatment? @ -No Exacerbation, Progression, or Severe Exacerbation? @ -No Poses a threat to life or bodily function? How? (Chest pain, USA, NM, pneumonia, PE, COPD, DKA, ARF, appy, cholecystitis, CVA, Diverticulitis, Homicidal, Suicidal, threat to staff... and all critical care pts) @ -Yes - Lab Data Result diagrams: 09/09/24 21:03 09/09/24 21:03 Lab Results 09/09/24 09/09/24 09/09/24 Range/Units 20:10 21:03 21:03 WBC 14.6 H (3.8-10.6) k/uL RBC 4.31 (3.80-5.40) m/uL Hgb 12.7 (11.4-16.0) gm/dL Hct 39.5 (34.0-46.0) % MCV 91.8 (80.0-100.0) fL MCH 29.6 (25.0-35.0) pg MCHC 32.2 (31.0-37.0) g/dL RDW 14.2 (11.5-15.5) % Plt Count 292 (150-450) k/uL MPV 8.0 Neutrophils % 65 % Lymphocytes % 28 % Monocytes % 4 % Eosinophils % 2 % Basophils % 1 % Neutrophils # 9.5 H (1.3-7.7) k/uL Lymphocytes # 4.1 (1.0-4.8) k/uL Monocytes # 0.5 (0-1.0) k/uL Eosinophils # 0.3 (0-0.7) k/uL Basophils # 0.1 (0-0.2) k/uL Sodium 139 (137-145) mmol/L Potassium 4.2 (3.5-5.1) mmol/L Chloride 109 H (98-107) mmol/L Carbon Dioxide 24 (22-30) mmol/L Anion Gap 6 mmol/L BUN 11 (7-17) mg/dL Creatinine 0.80 (0.52-1.04) mg/dL Est GFR (CKD-EPI)AfAm >90 (>60 ml/min/1.73 sqM) Est GFR (CKD-EPI)NonAf 88 (>60 ml/min/1.73 sqM) Glucose 115 H (74-99) mg/dL Calcium 9.2 (8.4-10.2) mg/dL Magnesium 2.1 (1.6-2.3) mg/dL Total Bilirubin 0.4 (0.2-1.3) mg/dL AST 48 H (14-36) U/L ALT 79 H (4-34) U/L Alkaline Phosphatase 132 H (38-126) U/L Troponin I (0.000-0.034) ng/mL NT-Pro-B Natriuret Pep 2260 pg/mL Total Protein 6.9 (6.3-8.2) g/dL Albumin 4.4 (3.5-5.0) g/dL Influenza Type A (PCR) Not Detected (Not Detectd) Influenza Type B (PCR) Not Detected (Not Detectd) RSV (PCR) Not Detected (Not Detectd) SARS-CoV-2 (PCR) Not Detected (Not Detectd) 09/09/24 Range/Units 21:03 WBC (3.8-10.6) k/uL RBC (3.80-5.40) m/uL Hgb (11.4-16.0) gm/dL Hct (34.0-46.0) % MCV (80.0-100.0) fL MCH (25.0-35.0) pg MCHC (31.0-37.0) g/dL RDW (11.5-15.5) % Plt Count (150-450) k/uL MPV Neutrophils % % Lymphocytes % % Monocytes % % Eosinophils % % Basophils % % Neutrophils # (1.3-7.7) k/uL Lymphocytes # (1.0-4.8) k/uL Monocytes # (0-1.0) k/uL Eosinophils # (0-0.7) k/uL Basophils # (0-0.2) k/uL Sodium (137-145) mmol/L Potassium (3.5-5.1) mmol/L Chloride (98-107) mmol/L Carbon Dioxide (22-30) mmol/L Anion Gap mmol/L BUN (7-17) mg/dL Creatinine (0.52-1.04) mg/dL Est GFR (CKD-EPI)AfAm (>60 ml/min/1.73 sqM) Est GFR (CKD-EPI)NonAf (>60 ml/min/1.73 sqM) Glucose (74-99) mg/dL Calcium (8.4-10.2) mg/dL Magnesium (1.6-2.3) mg/dL Total Bilirubin (0.2-1.3) mg/dL AST (14-36) U/L ALT (4-34) U/L Alkaline Phosphatase (38-126) U/L Troponin I <0.012 (0.000-0.034) ng/mL NT-Pro-B Natriuret Pep pg/mL Total Protein (6.3-8.2) g/dL Albumin (3.5-5.0) g/dL Influenza Type A (PCR) (Not Detectd) Influenza Type B (PCR) (Not Detectd) RSV (PCR) (Not Detectd) SARS-CoV-2 (PCR) (Not Detectd) Disposition Clinical Impression: Pneumonia Disposition: ADMITTED IP TO THIS HOSP Referrals: Hang Sheth MD [Primary Care Provider] - 1-2 days Time of Disposition: 22:15
--- NOTE | 2024-09-09 20:09 | XR ---
EXAMINATION TYPE: XR chest 2V DATE OF EXAM: 09/09/2024 7:56 PM COMPARISON: Previous chest regressed, most recently dated 11/02/2017. CLINICAL INDICATION: Female, 49 years old with history of cough; [facility] TECHNIQUE: XR chest 2V Frontal and lateral views of the chest. FINDINGS: Cardiomegaly. Patchy bilateral interstitial opacities. Small bilateral pleural effusions. No pneumothorax. No acute osseous abnormality. IMPRESSION: Cardiomegaly and interstitial opacities bilaterally which could reflect pulmonary edema and/or atypic al infectious etiology. [facility], , 09/09/2024 8:07 PM
[2024-09-09 20:55] LABS: Influenza A Not Detected (Not Detectd); Influenza B Not Detected (Not Detectd); RSV Not Detected (Not Detectd)
[2024-09-09 21:09] LABS: Basophils # (A) 0.1 k/uL (0-0.2); Basophils % (A) 1 %; Eosinophils # (A) 0.3 k/uL (0-0.7); Eosinophils % (A) 2 %; HCT 39.5 % (34.0-46.0); HGB 12.7 gm/dL (11.4-16.0); Lymphocytes # (A) 4.1 k/uL (1.0-4.8); Lymphocytes % (A) 28 %; MCH 29.6 pg (25.0-35.0); MCHC 32.2 g/dL (31.0-37.0); MCV 91.8 fL (80.0-100.0); Monocytes # (A) 0.5 k/uL (0-1.0); Monocytes % (A) 4 %; Neutrophils # (A) 9.5 k/uL (1.3-7.7); Neutrophils % (A) 65 %; Platelet Count 292 k/uL (150-450); RBC 4.31 m/uL (3.80-5.40); RDW 14.2 % (11.5-15.5); WBC 14.6 k/uL (3.8-10.6)
[2024-09-09 21:18] LABS: ALT 79 U/L (4-34); AST 48 U/L (14-36); African American GFR (CKD) >90 (>60 ml/min/1.73 sqM); Albumin 4.4 g/dL (3.5-5.0); Alkaline Phosphatase 132 U/L (38-126); Anion Gap 6 mmol/L; Blood Urea Nitrogen 11 mg/dL (7-17); Calcium 9.2 mg/dL (8.4-10.2); Carbon Dioxide 24 mmol/L (22-30); Chloride 109 mmol/L (98-107); Glucose 115 mg/dL (74-99); Magnesium 2.1 mg/dL (1.6-2.3); Non-African American GFR(CKD) 88 (>60 ml/min/1.73 sqM); Potassium 4.2 mmol/L (3.5-5.1); Sodium 139 mmol/L (137-145); Total Bilirubin 0.4 mg/dL (0.2-1.3); Total Protein 6.9 g/dL (6.3-8.2)
[2024-09-09 21:26] LABS: NT-Pro-B-Type Natriuretic Pept 2260 pg/mL
[2024-09-09] MEDS ORDERED: PNEUMONIA PROTOCOL UTILIZED 1 EACH MISC PO PRN (22:10)
[2024-09-09] MEDS: AZITHROMYCIN 500 MG in SODIUM CHLORIDE 0.9% 250 ML IVPB STA (23:33)
[2024-09-10] MEDS: AZITHROMYCIN 500 MG TAB PO SCH (13:33)
[2024-09-10] MEDS: NICOTINE 14MG/24HR PATCH TRANSDERM SCH (13:33)
[2024-09-10] MEDS: HEPARIN SODIUM,PORCINE 5,000 UNIT/ML 1 ML VIAL SQ SCH (13:33)
[2024-09-10] MEDS: IPRATROPIUM-ALBUTEROL 3 ML NEB INHALATION SCH (15:45)
--- NOTE | 2024-09-10 18:58 | HP ---
HISTORY AND PHYSICAL CHIEF COMPLAINT: Chest pain and shortness of breath. HISTORY OF PRESENT ILLNESS: This is a 49-year-old woman with a past medical history of multiple medical problems including hyperlipidemia, presented with shortness of breath and cough for the past several days. The patient's white count is elevated. Influenza is negative. The patient had possible bibasilar pneumonia. The patient admitted for further evaluation and antibiotic. The patient is feeling much better. There is no history of any fever, rigors, or chills at this time. PAST MEDICAL HISTORY: History of hyperlipidemia, nicotine dependence. Rest of the history and rest of the chart is also noted. HOME MEDICATIONS: Doxycycline. ALLERGIES: None. FAMILY HISTORY: History of COPD, liver disease. SOCIAL HISTORY: Smoking. REVIEW OF SYSTEMS: A 14-point review of systems is negative. PHYSICAL EXAMINATION: VITAL SIGNS: Pulse is 105, blood pressure 158/64, respirations 25. HEENT: Conjunctivae normal. NECK: No JVD. CARDIOVASCULAR: S1, S2. RESPIRATIONS: Breath sounds diminished at the bases. A few scattered rhonchi. ABDOMEN: Soft. NERVOUS SYSTEM: Nonfocal. LABORATORY DATA: WBC 14.6. ASSESSMENT: 1. Bilateral pneumonia, possibly asthmatic bronchitis. 2. Rule out congestive heart failure. 3. Nicotine dependence. 4. Hyperlipidemia. RECOMMENDATIONS AND DISCUSSION: This 49-year-old woman presented with multiple complex medical issues, we will monitor the patient closely. Continue the current management and continue symptomatic treatment. We will initiate broad-spectrum IV antibiotics, bronchodilators. I would also recommend pulmonary consultation. Repeat chest x-ray. Guarded prognosis because of multiple complex medical issues. Further recommendations to follow. BNP is elevated up to 2260. I would also recommend a 2D echo with Doppler to rule out the possibility of CHF as well. MMODL / IJN: [id number] /
[2024-09-11] MEDS: FUROSEMIDE 10 MG/ML 4 ML VIAL IV STA (09:01)
[2024-09-11 09:24] LABS: HCT 42.5 % (37.2-46.3); HGB 13.1 g/dL (12.0-15.0); MCH 29.3 pg (27.0-32.0); MCHC 30.8 g/dL (32.0-37.0); MCV 95.1 FL (80.0-97.0); Mean Platelet Volume 10.6 FL (9.5-12.2); NRBC Per 100 WBC 0 X 10*3/uL (0.00-0.01); Platelet Count 294 X 10*3/uL (140-440); RBC 4.47 X 10*6/uL (4.10-5.20); RDW 14.4 % (11.5-14.5); WBC 13.48 X 10*3/uL (4.50-10.00)
[2024-09-11 09:58] LABS: Basophils # (A) 0.09 X 10*3/uL (0.00-0.10); Basophils % (A) 0.7 %; Eosinophils # (A) 0.22 X 10*3/uL (0.04-0.35); Eosinophils % (A) 1.6 %; Lymphocytes # (A) 4.38 X 10*3/uL (0.90-5.00); Lymphocytes % (A) 32.5 %; Monocytes % (A) 5.2 %; Neutrophils # (A) 8.04 X 10*3/uL (1.80-7.70); Neutrophils % (A) 59.6 %
--- NOTE | 2024-09-11 10:26 | CA ---
Transthoracic Echo Report Name: Cris Noland Age: 49 Gender: F : 1975 Exam Date: 09/11/2024 08:08 Exam Location: [facility] Ht (in): 60 Wt (lb): 217 Ordering Physician: Rah Rodrigez MD Attending/Referring Phys: Pinset[employer] Jodie Shane RDCS Procedure CPT: Indications: chf Cardiac Hx: Technical Quality: Technically difficult study Contrast 1: Definity Total Dose (mL): 1 Contrast 2: Total Dose (mL): MEASUREMENTS (Male / Female) Normal Values 2D ECHO LVOT Diameter 2.1 cm LV Diastolic Volume MOD BP 179.7 cm??? 67 - 155 / 56 - 104 cm??? LV Systolic Volume MOD BP 117.2 cm??? 22 - 58 / 19 - 49 cm??? LV Ejection Fraction MOD BP 34.8 % >= 55 % LV Cardiac Index MOD BP 2796.6 cm???/min???m??? LV Diastolic Volume MOD 4C 177.6 cm??? LV Systolic Volume MOD 4C 125.1 cm??? LV Ejection Fraction MOD 4C 29.6 % LV Cardiac Index MOD 4C 2351.9 cm???/min???m??? LV Diastolic Length 4C 7.7 cm LV Systolic Length 4C 7.2 cm LV Diastolic Volume MOD 2C 180.9 cm??? LV Systolic Volume MOD 2C 108.0 cm??? LV Ejection Fraction MOD 2C 40.3 % LV Cardiac Index MOD 2C 3260.9 cm???/min???m??? LV Diastolic Length 2C 7.6 cm LV Systolic Length 2C 7.0 cm LA Volume 83.7 cm??? 18 - 58 / 22 - 52 cm??? LA Volume Index 39.9 cm???/m??? 16 - 28 cm???/m??? Ascending Aorta Diameter 3.2 cm M-MODE LV Diastolic Diameter MM 5.0 cm 4.2 - 5.9 / 3.9 - 5.3 cm LV Systolic Diameter MM 4.3 cm LV Cardiac Index MM Teich 1595.6 cm???/min???m??? IVS Diastolic Thickness MM 0.5 cm 0.6 - 1.0 / 0.6 - 0.9 cm LVPW Diastolic Thickness MM 1.7 cm 0.6 - 1.0 / 0.6 - 0.9 cm LV Relative Wall Thickness MM 0.4 0.24 - 0.42 / 0.22 - 0.42 LV Mass Index MM 101.4 g/m??? 49 - 115 / 43 - 95 g/m??? DOPPLER AV Peak Velocity 142.2 cm/s AV Peak Gradient 8.1 mmHg AV Mean Velocity 101.1 cm/s AV Mean Gradient 4.5 mmHg AV Velocity Time Integral 26.1 cm LVOT Peak Velocity 123.7 cm/s LVOT Peak Gradient 6.1 mmHg LVOT Velocity Time Integral 19.1 cm LVOT Stroke Volume 66.1 cm??? LVOT Stroke Volume Index 34.2 ml/m??? LVOT Cardiac Index 2956.7 cm???/min???m??? AV Area Cont Eq vti 2.5 cm??? AV Area Cont Eq pk 3.0 cm??? MV Peak Velocity 128.4 cm/s MV Peak Gradient 6.6 mmHg MV Mean Velocity 72.7 cm/s MV Mean Gradient 2.5 mmHg MV Velocity Time Integral 19.0 cm PV Peak Velocity 47.3 cm/s PV Peak Gradient 0.9 mmHg FINDINGS Left Ventricle Left ventricular ejection fraction is estimated at 25-30 %. Mildly increased left ventricular mass. Severely increased posterior wall thickness. Severely decreased fractional shortening. Severely decreased midwall fractional shortening. Severely increased left ventricular diastolic volume. Severely increased left ventricular systolic volume. Mildly increased left ventricular relative wall thickness. Moderately decreased left ventricular ejection fraction with global hypokinesis. Right Ventricle Normal right ventricular size with mildly reduced function. Unable to estimate the right ventricular systolic pressure. Right Atrium Normal right atrial size. Left Atrium Moderately increased left atrial volume. Mildly increased left atrial area. Mitral Valve Structurally normal mitral valve. No evidence for mitral valve prolapse. No mitral stenosis. Mild mitral regurgitation. Aortic Valve Aortic valve not well visualized. No aortic valve stenosis or regurgitation. Tricuspid Valve Structurally normal tricuspid valve. No tricuspid stenosis. Trace tricuspid regurgitation. Pulmonic Valve Structurally normal pulmonic valve. No pulmonic stenosis. Trace pulmonic regurgitation. Pericardium No pericardial effusion. Aorta Normal size aortic root and proximal ascending aorta. CONCLUSIONS Severe LV systolic dysfunction Moderate left atrial enlargement Previewed by: Dr. Burt Borges MD (Electronically Signed) Final Date: 11 September 2024 10:25
[2024-09-11 10:28] LABS: ALT 53 U/L (8-44); AST 22 U/L (13-35); Albumin 4.3 g/dL (3.8-4.9); Albumin/Globulin Ratio 1.65 Ratio (1.60-3.17); Alkaline Phosphatase 146 U/L (41-126); BUN/Creat Ratio 11.88 Ratio (12.00-20.00); Blood Urea Nitrogen 9.5 mg/dL (9.0-27.0); Calcium 9.3 mg/dL (8.7-10.3); Carbon Dioxide 23.8 mmol/L (21.6-31.8); Chloride 103 mmol/L (96-109); Globulin 2.6 g/dL (1.6-3.3); Glucose 112 mg/dL (70-110); Potassium 4.6 mmol/L (3.5-5.5); Sodium 139 mmol/L (135-145); Total Bilirubin 0.6 mg/dL (0.3-1.2); Total Protein 6.9 g/dL (6.2-8.2)
--- NOTE | 2024-09-11 12:01 | P.CNPUL ---
History of Present Illness Consult date: 09/11/24 Requesting physician: Rah Rodrigez Reason for consult: dyspnea, abnormal CXR/CT Chief complaint: Shortness of breath, chest heaviness History of present illness: This is a pleasant 49-year-old female patient with a known history of chronic and ongoing tobacco dependence of 30 years, obesity presented here with complaints of increasing shortness of breath cough congestion and chest heaviness. No fever or chills. No sputum production. Chest x-ray shows cardiomegaly with interstitial opacities bilaterally possible pulmonary edema and/or infection. White count 13.4. Hemoglobin 13.1. Platelets 294. Sodium 139. Potassium 4.6. Bicarb 24. BUN 10. Creatinine 0.8. proBNP 2260. Troponin negative x 1. Viral screen was negative. Procalcitonin negative. Echocardiogram shows severe left ventricular systolic function impairment with an ejection fraction of 25 to 30%. Global hypokinesia. She is seen today in consultation on the regular medical floor. She is currently sitting up in bed. Awake and alert in no acute distress. Denies any worsening shortness of breath, cough or congestion. No chest pain currently. She was given Lasix 40 mg IVP x 1 this morning. She is on ceftriaxone. Heparin for DVT prophylaxis. NicoDerm patch in place. Review of Systems REVIEW OF SYSTEMS: CONSTITUTIONAL: Denies any recent significant weight loss or weight gain. EYES: Denies change in vision. EARS, NOSE, MOUTH, THROAT: Denies headaches, denies sore throat. CARDIOVASCULAR: Positive for chest pain, no palpitations or syncopal episodes. RESPIRATORY: Positive for shortness of breath, no cough, congestion or hemoptysis. GASTROINTESTINAL: Denies change in appetite, denies abdominal pain GENITOURINARY: Denies hematuria, denies infections. MUSKULOSKELETAL: Denies pain, denies swelling. INTEGUMENTARY: Denies rash, denies eczema. NEUROLOGICAL: Denies recent memory loss, no recent seizure activity. PSYCHIATRIC: Denies anxiety, denies depression. HEMATOLOGIC/LYMPHATIC: Denies anemia, denies enlarged lymph nodes. Past Medical History Past Medical History: No Reported History, Hyperlipidemia Additional Past Medical History / Comment(s): 11/15/15 Pt presented to [facility] ER with chest pain and L shoulder pain. She is being admitted with clinical impression of chest pain. Other HX: migraines, sinus problems. History of Any Multi-Drug Resistant Organisms: None Reported Past Surgical History: Cholecystectomy, Tubal Ligation Additional Past Surgical History / Comment(s): 2010 Lap cholecystectomy, cervix surgery to remove precancerous cells, R foot cyst removed Past Anesthesia/Blood Transfusion Reactions: No Reported Reaction Past Psychological History: Anxiety, Depression Additional Psychological History / Comment(s): Pt resides with her spouse and 2 children ages 15 and 16yrs. She is independent. She uses no assistive device. She drives. Smoking Status: Current every day smoker Past Alcohol Use History: Rare Additional Past Alcohol Use History / Comment(s): Pt smokes 1 ppd. She started smoking in 1993 Past Drug Use History: None Reported - Past Family History Father Family Medical History: Cancer, COPD, Liver Disease Additional Family Medical History / Comment(s): Father at age 74 from COPD. He had liver cirrhosis and skin cancer. He was an alcoholic. He was a smoker. Mother Family Medical History: COPD Additional Family Medical History / Comment(s): Mother of COPD at the age of 52 yrs. Medications and Allergies Home Medications Medication Instructions Recorded Confirmed Type Albuterol Inhaler [Ventolin Hfa 2 puff INHALATION RT-Q4H PRN 09/10/24 09/10/24 History Inhaler] Doxycycline Hyclate 100 mg PO BID 09/10/24 09/10/24 History Allergies Allergy/AdvReac Type Severity Reaction Status Date / Time No Known Allergies Allergy Verified 09/10/24 10:19 Physical Exam Vitals: Vital Signs Temp Pulse Pulse Resp BP Pulse Ox 09/11/24 08:59 92 09/11/24 08:48 92 09/11/24 07:36 97.3 F L 102 H 18 150/88 93 L 09/11/24 02:00 98.2 F 98 20 157/96 93 L 09/10/24 20:26 86 09/10/24 20:15 84 09/10/24 20:00 97.2 F L 100 20 138/70 93 L 09/10/24 17:51 98 09/10/24 15:59 84 09/10/24 15:47 86 09/10/24 14:24 97.4 F L 86 17 145/82 96 Intake and Output 09/10/24 09/11/24 09/11/24 22:59 06:59 14:59 Intake Total 540 590 Balance 540 590 Intake: Oral 540 590 Other: Voiding Method Toilet # Voids 1 3 GENERAL EXAM: Alert, pleasant 49-year-old female, on room air, fairly comfor table in no apparent distress. HEAD: Normocephalic. EYES: Normal reaction of pupils, equal size. NOSE: Clear with pink turbinates. THROAT: No erythema or exudates. NECK: No masses, no JVD. CHEST: No chest wall deformity. LUNGS: Equal air entry with crackles in the posterior bases. CVS: S1 and S2 normal with no audible murmur, regular rhythm. ABDOMEN: No hepatosplenomegaly, normal bowel sounds, no guarding or rigidity. SPINE: No scoliosis or deformity SKIN: No rashes CENTRAL NERVOUS SYSTEM: No focal deficits, tone is normal in all 4 extremities. EXTREMITIES: There is no peripheral edema. No clubbing, no cyanosis. Peripheral pulses are intact. Results - Laboratory Findings CBC and BMP: 09/11/24 05:45 09/11/24 05:45 Abnormal lab findings: Abnormal Labs 09/09/24 09/09/24 09/11/24 21:03 21:03 05:45 WBC 14.6 H 13.48 H MCHC 30.8 L Immature Gran # 0.05 H Neutrophils # 9.5 H 8.04 H Chloride 109 H Anion Gap BUN/Creatinine Ratio Glucose 115 H AST 48 H ALT 79 H Alkaline Phosphatase 132 H 09/11/24 05:45 WBC MCHC Immature Gran # Neutrophils # Chloride Anion Gap 12.20 H BUN/Creatinine Ratio 11.88 L Glucose 112 H AST ALT 53 H Alkaline Phosphatase 146 H - Diagnostic Findings Chest x-ray: image reviewed Assessment and Plan Assessment: Acute exacerbation of systolic congestive heart failure in a patient found to have an ejection fraction of 25 to 30% with global hypokinesia Chronic and ongoing tobacco dependence of greater than 30 years Obesity History of anxiety/depression Plan: The patient was seen and evaluated Chest x-ray, labs and medications reviewed Currently stable and on room air Echocardiogram reviewed Lasix 40 mg IVP x 1 Cardiology consulted Procalcitonin negative Antibiotics discontinued Bronchodilators as needed Educated regarding smoking cessation NicoDerm patch in place We will continue to follow and make further recommendations based on her clinical status I have personally seen and examined the patient, performed the documentation and the assessment and plan as written. Number of minutes spent on the visit: 20 Dictation was produced using Play4test dictation software. Please excuse any grammatical, word or spelling errors.
[2024-09-11] MEDS: carvediloL 3.125 MG TAB PO SCH (14:50)
[2024-09-11] MEDS: FUROSEMIDE 10 MG/ML 4 ML VIAL IV SCH (17:35)
[2024-09-12 05:33] LABS: Mycoplasma IgG Antibody (EIA) 2.45 INDEX (<=0.90); Mycoplasma IgM Antibody 0.08 INDEX (<=0.90)
[2024-09-12] MEDS: IPRATROPIUM-ALBUTEROL 3 ML NEB INHALATION PRN (07:48)
--- NOTE | 2024-09-12 08:16 | PN ---
PROGRESS NOTE SUBJECTIVE: This is a 49-year-old woman, who was admitted with chest pain, shortness of breath, had significant bilateral lesions, possibility of pneumonia is considered, but however, 2D echo showed ejection fraction of 25% to 30% with global hypokinesis. Cardiomyopathy suspected. The patient is being closely monitored. PAST MEDICAL HISTORY: Reviewed. REVIEW OF SYSTEMS: A 14-point review is negative except as mentioned earlier. CURRENT MEDICATIONS: Reviewed. PHYSICAL EXAMINATION: VITAL SIGNS: Pulse is 92, blood pressure 150/80, respirations 18. HEENT: Conjunctivae normal. NECK: No JVD. CARDIOVASCULAR: S1, S2. RESPIRATIONS: A few scattered rhonchi. ABDOMEN: Soft. NERVOUS SYSTEM: Nonfocal. LABORATORY DATA: Reviewed. ASSESSMENT: 1. Possibly congestive heart failure acute exacerbation with acute on chronic systolic dysfunction. Ejection fraction is 25% to 30% with global hypokinesia. 2. History of nicotine dependence. 3. Hyperlipidemia. RECOMMENDATIONS AND DISCUSSION: I recommend to continue current management and continue symptomatic treatment. Otherwise, at this time, I recommend consult Cardiology and we will recommend Lasix. The viral panel is negative. Troponins are negative. Guarded prognosis. Further recommendations to follow. See orders for further details. MMODL / IJN: [id number] /
[2024-09-12 08:28] LABS: BUN/Creat Ratio 16.71 Ratio (12.00-20.00); Blood Urea Nitrogen 11.7 mg/dL (9.0-27.0); Calcium 9.3 mg/dL (8.7-10.3); Chloride 103 mmol/L (96-109); Glucose 113 mg/dL (70-110); Potassium 4.4 mmol/L (3.5-5.5); Sodium 138 mmol/L (135-145)
[2024-09-12 08:39] LABS: Basophils # (A) 0.08 X 10*3/uL (0.00-0.10); Basophils % (A) 0.6 %; Eosinophils # (A) 0.22 X 10*3/uL (0.04-0.35); Eosinophils % (A) 1.8 %; HCT 42.2 % (37.2-46.3); HGB 13.2 g/dL (12.0-15.0); Lymphocytes # (A) 3.97 X 10*3/uL (0.90-5.00); Lymphocytes % (A) 31.8 %; MCH 29.2 pg (27.0-32.0); MCHC 31.3 g/dL (32.0-37.0); MCV 93.4 FL (80.0-97.0); Mean Platelet Volume 10.2 FL (9.5-12.2); Monocytes # (A) 0.64 X 10*3/uL (0.20-1.00); Monocytes % (A) 5.1 %; NRBC Per 100 WBC 0 X 10*3/uL (0.00-0.01); Neutrophils # (A) 7.51 X 10*3/uL (1.80-7.70); Neutrophils % (A) 60.2 %; Platelet Count 299 X 10*3/uL (140-440); RBC 4.52 X 10*6/uL (4.10-5.20); RDW 14.6 % (11.5-14.5); WBC 12.48 X 10*3/uL (4.50-10.00)
--- NOTE | 2024-09-12 11:23 | XR ---
EXAMINATION TYPE: XR chest 1V portable DATE OF EXAM: 09/12/2024 COMPARISON: 09/09/2024 CLINICAL INDICATION: Female, 49 years old with history of CHF; , TECHNIQUE: XR chest 1V portable views of the chest. FINDINGS: Cardiomegaly with marked improved aeration of bilateral lung doan. Limited inspiration.. Osseous st ructures stable. IMPRESSION: 1. Marked improvement of the chest with near complete resolution of bilateral interstitial and alveol ar infiltrates. [facility], , 09/12/2024 11:21 AM
--- NOTE | 2024-09-12 12:41 | P.PN ---
Subjective Progress Note Date: 09/12/24 This is a pleasant 49-year-old female patient with a known history of chronic and ongoing tobacco dependence of 30 years, obesity presented here with complaints of increasing shortness of breath cough congestion and chest heaviness. No fever or chills. No sputum production. Chest x-ray shows cardiomegaly with interstitial opacities bilaterally possible pulmonary edema and/or infection. White count 13.4. Hemoglobin 13.1. Platelets 294. Sodium 139. Potassium 4.6. Bicarb 24. BUN 10. Creatinine 0.8. proBNP 2260. Troponin negative x 1. Viral screen was negative. Procalcitonin negative. Ec hocardiogram shows severe left ventricular systolic function impairment with an ejection fraction of 25 to 30%. Global hypokinesia. She is seen today in consultation on the regular medical floor. She is currently sitting up in bed. Awake and alert in no acute distress. Denies any worsening shortness of breath, cough or congestion. No chest pain currently. She was given Lasix 40 mg IVP x 1 this morning. She is on ceftriaxone. Heparin for DVT prophylaxis. NicoDerm patch in place. The patient is seen today September 12, 2024 in follow-up on the regular medical floor. She is currently sitting up at the bedside. Awake and alert in no acute distress. Denies any worsening shortness of breath, cough or congestion. She is maintaining good O2 saturations in the 90s on room air. She is breathing quite a bit better today compared to yesterday. White count 12.4. Hemoglobin 13.2. Platelets 299. Sodium 138. Potassium 4.4. Bicarb 22. BUN 12. Creatinine 0.7. Glucose 113. Follow-up chest x-ray reveals marked improvement of the chest with near complete resolution of the interstitial edema. Continued on Lasix 40 mg IV every 12 hours. Heparin for DVT prophylaxis. NicoDerm patch in place. Sputum culture revealed no growth. Blood cultures revealed no growth. Objective - Vital Signs Vital signs: Vital Signs Temp 98.4 F 09/12/24 12:00 Pulse 79 09/12/24 12:00 Resp 16 09/12/24 12:00 BP 152/82 09/12/24 12:00 Pulse Ox 94 L 09/12/24 12:00 FiO2 Intake & Output 12/26/24 12/27/24 12/27/24 18:59 06:59 18:59 Intake Total 540 Balance 540 Intake: Oral 540 Other: # Voids 3 - Exam GENERAL EXAM: Alert, active, pleasant 49-year-old female, sitting up in bed, on room air, comfortable in no apparent distress. HEAD: Normocephalic. EYES: Normal reaction of pupils, equal size. NOSE: Clear with pink turbinates. THROAT: No erythema or exudates. NECK: No masses, no JVD. CHEST: No chest wall deformity. LUNGS: Equal air entry with no crackles, wheeze, rhonchi or dullness. CVS: S1 and S2 normal with no audible murmur, regular rhythm. ABDOMEN: No hepatosplenomegaly, normal bowel sounds, no guarding or rigidity. SPINE: No scoliosis or deformity SKIN: No rashes CENTRAL NERVOUS SYSTEM: No focal deficits, tone is normal in all 4 extremities. EXTREMITIES: There is no peripheral edema. No clubbing, no cyanosis. Rosalie pheral pulses are intact. - Labs CBC & Chem 7: 09/12/24 04:31 09/12/24 04:31 Labs: Abnormal Lab Results - Last 24 Hours (Table) 09/10/24 09/12/24 09/12/24 Range/Units 14:12 04:31 04:31 WBC 12.48 H (4.50-10.00) X 10*3/uL MCHC 31.3 L (32.0-37.0) g/dL RDW 14.6 H (11.5-14.5) % Immature Gran # 0.06 H (0.00-0.04) X 10*3/uL Anion Gap 13.00 H (4.00-12.00) mmol/L Glucose 113 H (70-110) mg/dL Mycoplasma pneumon IgG 2.45 H (<=0.90) INDEX Microbiology - Last 24 Hours (Table) 09/10/24 09:58 Gram Stain - Final Sputum Sputum Culture - Final 09/09/24 23:15 Blood Culture - Preliminary Blood 09/09/24 23:00 Blood Culture - Preliminary Blood Assessment and Plan Assessment: Acute exacerbation of systolic congestive heart failure in a patient found to have an ejection fraction of 25 to 30% with global hypokinesia Chronic and ongoing tobacco dependence of greater than 30 years Obesity History of anxiety/depression Plan: The patient was seen and evaluated Chest x-ray, labs and medications reviewed X-ray shows marked improvement Remains on IV diuretics Currently stable and on room air Home once cleared by cardiology I have personally seen and examined the patient, performed the documentation and the assessment and plan as written. Number of minutes spent on the visit: 10 Dictation was produced using Hitched[employer] dictation software. Please excuse any grammatical, word or spelling errors.
[2024-09-12] MEDS: LOSARTAN 50 MG TAB PO SCH (13:03)
--- NOTE | 2024-09-12 21:52 | CONS ---
CONSULTATION CHIEF COMPLAINT: Shortness of breath. HISTORY OF PRESENT ILLNESS: This is a 49-year-old lady who presented to hospital with shortness of breath and cough of several days duration with elevated white cell count on Post Roxanne. She was thought to have had pneumonia and was evaluated by Pulmonary and subsequently underwent an echocardiogram that revealed severe LV systolic dysfunction. Her BNP was elevated at 2260. Troponin was negative. Chest x-ray showed cardiomegaly with bilateral interstitial infiltrate which could be pulmonary edema. At the time of my evaluation, the patient appears comfortable at rest. She had been treated with IV diuretics with almost complete resolution of her symptoms. The patient has new-onset cardiomyopathy with acute systolic heart failure. She is currently on Coreg, Lasix, which I will continue and Cozaar. I will check lipid profile and start on a statin. She is a smoker and I advised her to quit smoking. The patient needs a cardiac catheterization, probably a LifeVest. PAST MEDICAL HISTORY: Significant for COPD. MEDICATIONS AT HOME: Include: 1. Doxycycline. 2. Albuterol. ALLERGIES: There are no known drug allergies. FAMILY HISTORY: Significant for premature coronary artery disease. SOCIAL HISTORY: Significant for smoking. There is no history of EtOH abuse or drug abuse. REVIEW OF SYSTEMS: 14 out of 14 review of systems have been performed, pertinents are as documented. PHYSICAL EXAMINATION: GENERAL: She is comfortable at rest. VITAL SIGNS: Stable. NECK: There is no jugular venous distention. Carotid upstroke is normal. CHEST: Reveals good air entry bilaterally. HEART: Reveals first and second heart sounds. No gallop. EXTREMITIES: Did not reveal any edema. Peripheral pulses are felt. ASSESSMENT: 1. Acute-onset systolic heart failure. 2. Cardiomyopathy with severe left ventricular dysfunction. PLAN: We will treat the patient with diuretics, beta blockers, BALTAZAR inhibitors, and add Aldactone, blood pressure permitting. I will perform cardiac catheterization on her tomorrow, time permitting and she will need a LifeVest while we figure out what to do with cardiomyopathy. MMODL / IJN: [id number] /
--- NOTE | 2024-09-13 02:20 | P.PN ---
Subjective Progress Note Date: 09/12/24 09/12/2024 This is a 49-year-old female who was recently admitted with chest pain, shortness of breath, possible pneumonia with pulmonary following closely. 2D echo was ordered showing severe LV systolic dysfunction with an EF of 25 to 30% with global hypokinesia and cardiology has been consulted. Patient maintained on IV diuresis and antibiotics being discontinued per pulmonary. Patient is extremely anxious to go home although awaiting cardiology. Patient denies significant shortness of breath or chest pain. Review of systems: Constitutional: No reports of fatigue, fever, or chills Cardiovascular: No reports of chest pain or palpitations Respiratory: No reports of worsening shortness of breath or cough GI: No reports of nausea, no reports of vomiting, no diarrhea : No reports of dysuria or retention Neurovascular: No reports of generalized weakness Active Medications Albuterol/Ipratropium (Ipratropium-Albuterol 3 Ml Neb) 3 ml INHALATION RT-TID PRN PRN Reason: Dyspnea Last Admin: 09/12/24 07:48 Dose: 3 ml Carvedilol (Carvedilol 3.125 Mg Tab) 3.125 mg PO BID-W/MEALS [facility] Last Admin: 09/12/24 17:42 Dose: 3.125 mg Furosemide (Furosemide 10 Mg/Ml 4 Ml Vial) 40 mg IV Q12H [facility] Last Admin: 09/12/24 17:42 Dose: 40 mg Heparin Sodium (Porcine) (Heparin Sodium,Porcine 5,000 Unit/Ml 1 Ml Vial) 5,000 unit SQ Q12HR [facility] Last Admin: 09/12/24 21:54 Dose: 5,000 unit Losartan Potassium (Losartan 50 Mg Tab) 50 mg PO DAILY [facility] Last Admin: 09/12/24 13:03 Dose: 50 mg Miscellaneous Information (Pneumonia Protocol Utilized 1 Each Misc) 1 each PO ONCE PRN PRN Reason: Per Protocol Nicotine (Nicotine 14mg/24hr Patch) 1 patch TRANSDERM DAILY [facility] Last Admin: 09/12/24 08:28 Dose: 1 patch PHYSICAL EXAMINATION: GENERAL: The patient is alert and oriented x4, Well developed, well nourished. Morbidly obese, appears older than stated age HEENT: Pupils are round and equally reacting to light. EOMI. no scleral icterus. No conjunctival pallor. Normocephalic, atraumatic. No pharyngeal erythema. No thyromegaly. CARDIOVASCULAR: S1 and S2 muffled PULMONARY: diminished breath sounds bilaterally with no wheezing or rhonchi noted. A few faint crackles noted ABDOMEN: soft. Nontender on exam. obese. non-distended, normoactive bowel matthew nds. No palpable organomegaly. MUSCULOSKELETAL: No joint swelling or deformity. EXTREMITIES: No cyanosis, clubbing, or pedal edema. NEUROLOGICAL: Gross neurological examination did not reveal any focal deficits. SKIN: No rashes. Assessment: Acute onset congestive heart failure with systolic dysfunction, EF 25 to 30% with severe global hypokinesia noted History of continued ongoing nicotine dependence Morbid obesity with a BMI of 42.4 Hyperlipidemia GI prophylaxis DVT prophylaxis Full code Plan: Recommend to continue with current medications and management with pulmonary and now cardiology following as patient's echo showing severe LV systolic dysfunction and cardiology planning on cardiac catheterization in the a.m. Patient will be n.p.o. at midnight will await report Pulmonary following as well maintained on IV diuresis and has discontinued antibiotics feeling pneumonia is less likely. Case management/social work consult also for possible LifeVest on discharge Will follow-up with repeat labs and await cardiology report and appreciate input and recommendations Patient may likely be here over the weekend Overall prognosis is guarded The impression and plan of care has been dictated by Mayte Kumar, nurse practitioner as directed. Dr. Elia MD I have performed a history and examination and MDM of this patient, discussed the same with the dictator, and agree with the dictator's assessment and plan as written ,documented as a scribe. Based on total visit time, I have performed more than 50% of the visit. Any additional findings or plans will be noted. Objective - Vital Signs Vital signs: Vital Signs Temp 98.4 F 09/12/24 12:00 Pulse 79 09/12/24 12:00 Resp 16 09/12/24 12:00 BP 152/82 09/12/24 12:00 Pulse Ox 94 L 09/12/24 12:00 FiO2 Intake & Output 09/11/24 09/12/24 09/12/24 18:59 06:59 18:59 Intake Total 540 960 Balance 540 960 Intake: Oral 540 960 Other: # Voids 3 - Labs CBC & Chem 7: 09/12/24 04:31 09/12/24 04:31 Labs: Abnormal Lab Results - Last 24 Hours (Table) 09/10/24 09/12/24 09/12/24 Range/Units 14:12 04:31 04:31 WBC 12.48 H (4.50-10.00) X 10*3/uL MCHC 31.3 L (32.0-37.0) g/dL RDW 14.6 H (11.5-14.5) % Immature Gran # 0.06 H (0.00-0.04) X 10*3/uL Anion Gap 13.00 H (4.00-12.00) mmol/L Glucose 113 H (70-110) mg/dL Mycoplasma pneumon IgG 2.45 H (<=0.90) INDEX Microbiology - Last 24 Hours (Table) 09/10/24 09:58 Gram Stain - Final Sputum Sputum Culture - Final 09/09/24 23:15 Blood Culture - Preliminary Blood 09/09/24 23:00 Blood Culture - Preliminary Blood
[2024-09-13] MEDS ORDERED: ALPRAZolam 0.25 MG TAB PO PRN (08:59)
[2024-09-13] MEDS ORDERED: ALPRAZolam 0.5 MG TAB PO PRN (08:59)
[2024-09-13] MEDS ORDERED: NITROGLYCERIN SL TABS 0.4 MG TAB SUBLINGUAL PRN (08:59)
[2024-09-13 09:13] LABS: Basophils # (A) 0.09 X 10*3/uL (0.00-0.10); Basophils % (A) 0.7 %; Eosinophils # (A) 0.29 X 10*3/uL (0.04-0.35); Eosinophils % (A) 2.1 %; HCT 46.1 % (37.2-46.3); HGB 14.5 g/dL (12.0-15.0); Lymphocytes # (A) 4.17 X 10*3/uL (0.90-5.00); Lymphocytes % (A) 30.6 %; MCH 29.2 pg (27.0-32.0); MCHC 31.5 g/dL (32.0-37.0); MCV 92.8 FL (80.0-97.0); Mean Platelet Volume 10.3 FL (9.5-12.2); Monocytes # (A) 0.75 X 10*3/uL (0.20-1.00); Monocytes % (A) 5.5 %; NRBC Per 100 WBC 0 X 10*3/uL (0.00-0.01); Neutrophils # (A) 8.27 X 10*3/uL (1.80-7.70); Neutrophils % (A) 60.7 %; Platelet Count 359 X 10*3/uL (140-440); RBC 4.97 X 10*6/uL (4.10-5.20); RDW 14.3 % (11.5-14.5); WBC 13.63 X 10*3/uL (4.50-10.00)
[2024-09-13 09:44] LABS: BUN/Creat Ratio 22.14 Ratio (12.00-20.00); Blood Urea Nitrogen 15.5 mg/dL (9.0-27.0); Calcium 9.6 mg/dL (8.7-10.3); Carbon Dioxide 22.5 mmol/L (21.6-31.8); Chloride 100 mmol/L (96-109); Chol/HDL Ratio 5.16 Ratio; Glucose 111 mg/dL (70-110); LDL Cholesterol,Calculated 99.8 mg/dL (0.0-131.0); Potassium 4.7 mmol/L (3.5-5.5); Sodium 138 mmol/L (135-145)
[2024-09-13] MEDS: ATORVASTATIN 80 MG TAB PO STA (10:07)
[2024-09-13] MEDS: ASPIRIN 325 MG TAB PO STA (10:07)
[2024-09-13] MEDS: IV FLUID CONTINUATION 900 ML IV ONE (10:28)
[2024-09-13] MEDS: fentaNYL (PF) 50 MCG/ML 2 ML AMP IVP ONE (10:44)
[2024-09-13] MEDS: MIDAZOLAM 2 MG/2 ML VIAL IVP ONE ×2 (10:44→10:46)
[2024-09-13] MEDS: LIDOCAINE 1% INJ 10MG/ML (20 ML MDV) SQ ONE (10:47)
[2024-09-13] MEDS: VERAPAMIL SYRINGE (5 MG/10 ML) INTRAARTER ONE (10:58)
[2024-09-13] MEDS: IOPAMIDOL-370 100ML BTL INJ ONE (11:13)
[2024-09-13] MEDS: HEPARIN SODIUM,PORCINE 10,000 UNIT in SODIUM CHLORIDE 0.9% 1,000 ML IRRIGATION PRN (11:15)
[2024-09-13] MEDS: HEPARIN SODIUM,PORCINE (1 ML) 2,500 UNIT in SODIUM CHLORIDE 0.9% 250 ML IRRIGATION PRN (11:15)
[2024-09-13 11:32] LABS: Glucose,Whole Blood 115 mg/dL (70-110)
[2024-09-13] MEDS ORDERED: RX INFO: IV CONTRAST WAS GIVEN 1 EACH MISC MISCELLANE PRN (12:09)
[2024-09-13] MEDS: SODIUM CHLORIDE 0.9% 1,000 ML in EMPTY BAG 1 BAG IV SCH (12:28)
--- NOTE | 2024-09-13 12:43 | P.PN ---
Progress Note - Text Cris Noland is a 49-year-old female found to have severe cardiomyopathy with ejection fraction of 25 to 30%. She underwent cardiac catheterization revealing normal coronary arteries. Due to severe cardiomyopathy, patient will require LifeVest at the time of discharge to prevent sudden cardiac . [facility] LifeVest medical order form completed and sent to [facility].
--- NOTE | 2024-09-13 14:20 | P.PN ---
Subjective Progress Note Date: 09/13/24 Principal diagnosis: Reviewed systolic congestive heart failure This is a pleasant 49-year-old female patient with a known history of chronic and ongoing tobacco dependence of 30 years, obesity presented here with complaints of increasing shortness of breath cough congestion and chest heaviness. No fever or chills. No sputum production. Chest x-ray shows cardiomegaly with interstitial opacities bilaterally possible pulmonary edema and/or infection. White count 13.4. Hemoglobin 13.1. Platelets 294. Sodium 139. Potassium 4.6. Bicarb 24. BUN 10. Creatinine 0.8. proBNP 2260. Troponin negative x 1. Viral screen was negative. Procalcitonin negative. Echocardiogram shows severe left ventricular systolic function impairment with an ejection fraction of 25 to 30%. Global hypokinesia. She is seen today in consultation on the regular medical floor. She is currently sitting up in bed. Awake and alert in no acute distress. Denies any worsening shortness of breath, cough or congestion. No chest pain currently. She was given Lasix 40 mg IVP x 1 this morning. She is on ceftriaxone. Heparin for DVT prophylaxis. NicoDerm patch in place. The patient is seen today September 12, 2024 in follow-up on the regular medical floor. She is currently sitting up at the bedside. Awake and alert in no acute distress. Denies any worsening shortness of breath, cough or congestion. She is maintaining good O2 saturations in the 90s on room air. She is breathing quite a bit better today compared to yesterday. White count 12.4. Hemoglobin 13.2. Platelets 299. Sodium 138. Potassium 4.4. Bicarb 22. BUN 12. Creatinine 0.7. Glucose 113. Follow-up chest x-ray reveals marked improvement of the chest with near complete resolution of the interstitial edema. Continued on Lasix 40 mg IV every 12 hours. Heparin for DVT prophylaxis. NicoDerm patch in place. Sputum culture revealed no growth. Blood cultures revealed no growth. Patient was seen today on 09/13/2024, clinically the patient is feeling much better, breathing a lot easier, however the patient needs to have further workup by cardiology. And she may even require a LifeVest. Patient did undergo cardiac catheterization today, and she is found to have normal coronary arteries. Cardiology ordered a LifeVest for this patient, pulmonary rosas doing great, asymptomatic, no cough no wheezing no shortness of breath, follow-up chest x-ray showed dramatic improvement in her pulmonary edema. WBC count today 13.6 hemoglobin is normal basic metabolic profile is normal renal profile is nor mal Objective - Vital Signs Vital signs: Vital Signs Temp 97.4 F L 09/13/24 12:09 Pulse 73 09/13/24 12:40 Resp 12 09/13/24 12:40 BP 100/53 09/13/24 12:40 Pulse Ox 93 L 09/13/24 12:00 FiO2 Intake & Output 09/12/24 09/13/24 09/13/24 18:59 06:59 18:59 Intake Total 960 250 Balance 960 250 Intake: IV 250 Oral 960 Other: # Voids 3 - Exam GENERAL EXAM: 49-year-old female in no distress, on room air HEAD: Normocephalic. EYES: Normal reaction of pupils, equal size. NOSE: Clear with pink turbinates. THROAT: No erythema or exudates. NECK: No masses, no JVD. CHEST: No chest wall deformity. LUNGS: Equal air entry with no crackles, wheeze, rhonchi or dullness. CVS: S1 and S2 normal with no audible murmur, regular rhythm. ABDOMEN: No hepatosplenomegaly, normal bowel sounds, no guarding or rigidity. SKIN: No rashes CENTRAL NERVOUS SYSTEM: Alert and oriented x 3 no gross focal deficit EXTREMITIES no clubbing edema or cyanosis. - Labs CBC & Chem 7: 09/13/24 05:59 09/13/24 05:59 Labs: Abnormal Lab Results - Last 24 Hours (Table) 09/13/24 09/13/24 09/13/24 Range/Units 05:59 05:59 11:30 WBC 13.63 H (4.50-10.00) X 10*3/uL MCHC 31.5 L (32.0-37.0) g/dL Immature Gran # 0.06 H (0.00-0.04) X 10*3/uL Neutrophils # 8.27 H (1.80-7.70) X 10*3/uL Anion Gap 15.50 H (4.00-12.00) mmol/L BUN/Creatinine Ratio 22.14 H (12.00-20.00) Ratio Glucose 111 H (70-110) mg/dL POC Glucose (mg/dL) 115 H (70-110) mg/dL Triglycerides 287.00 H (0.00-149.00) mg/dL VLDL Cholesterol, Calc 57.40 H (5.00-40.00) mg/dL HDL Cholesterol 37.80 L (40.00-60.00) mg/dL Microbiology - Last 24 Hours (Table) 09/09/24 23:15 Blood Culture - Preliminary Blood 09/09/24 23:00 Blood Culture - Preliminary Blood Assessment and Plan Assessment: Impression: Acute systolic congestive heart failure secondary to nonischemic cardiomyopathy and LV dysfunction Chronic and ongoing tobacco dependence of greater than 30 years Obesity History of anxiety/depression Recommendation: Reviewed the results of her cardiac catheterization today Continue diuretics as ordered by cardiology Patient is waiting for a LifeVest, Need further cardiac workup on outpatient basis by cardiology Will clear the patient to be discharged home once cleared by cardiology at the case. Time with Patient: Less than 30
[2024-09-13] MEDS: SODIUM CHLORIDE 0.9% 1,000 ML IV SCH (18:04)
[2024-09-14 06:31] LABS: Basophils # (A) 0.1 k/uL (0-0.2); Basophils % (A) 1 %; Eosinophils # (A) 0.3 k/uL (0-0.7); Eosinophils % (A) 2 %; HCT 43.9 % (34.0-46.0); HGB 14.1 gm/dL (11.4-16.0); Hypochromasia Slight; Lymphocytes # (A) 3.8 k/uL (1.0-4.8); Lymphocytes % (A) 29 %; MCH 29.7 pg (25.0-35.0); MCHC 32.1 g/dL (31.0-37.0); MCV 92.7 fL (80.0-100.0); Mean Platelet Volume 7.5; Monocytes # (A) 0.6 k/uL (0-1.0); Monocytes % (A) 5 %; Neutrophils # (A) 8.1 k/uL (1.3-7.7); Neutrophils % (A) 62 %; Platelet Count 311 k/uL (150-450); RBC 4.74 m/uL (3.80-5.40)
[2024-09-14 06:43] LABS: African American GFR (CKD) >90 (>60 ml/min/1.73 sqM); Anion Gap 13 mmol/L; Blood Urea Nitrogen 19 mg/dL (7-17); Calcium 9.5 mg/dL (8.4-10.2); Carbon Dioxide 20 mmol/L (22-30); Chloride 103 mmol/L (98-107); Glucose 107 mg/dL (74-99); Non-African American GFR(CKD) >90 (>60 ml/min/1.73 sqM); Potassium 4.5 mmol/L (3.5-5.1); Sodium 136 mmol/L (137-145)
--- NOTE | 2024-09-14 06:43 | P.PN ---
Subjective Progress Note Date: 09/13/24 09/12/2024 This is a 49-year-old female who was recently admitted with chest pain, shortness of breath, possible pneumonia with pulmonary following closely. 2D echo was ordered showing severe LV systolic dysfunction with an EF of 25 to 30% with global hypokinesia and cardiology has been consulted. Patient maintained on IV diuresis and antibiotics being discontinued per pulmonary. Patient is extremely anxious to go home although awaiting cardiology. Patient denies significant shortness of breath or chest pain. 09/13/2024 Patient is seen in follow-up today currently n.p.o. with cardiology following awaiting to undergo cardiac catheterization. Will await official report and discuss further with cardiology regarding discharge planning and treatment plan moving forward. Unsure if patient will require LifeVest and again will await cardiac catheterization report. Patient is afebrile no reports of increased shortness of breath and denies any chest pain or palpitations. Diet will be resumed once cleared by cardiology. Review of systems: Constitutional: No reports of fatigue, fever, or chills Cardiovascular: No reports of chest pain or palpitations Respiratory: No reports of worsening shortness of breath or cough GI: No reports of nausea, no reports of vomiting, no diarrhea : No reports of dysuria or retention Neurovascular: No reports of generalized weakness PHYSICAL EXAMINATION: GENERAL: The patient is alert and oriented x4, Well developed, well nourished. Morbidly obese, appears older than stated age HEENT: Pupils are round and equally reacting to light. EOMI. no scleral icterus. No conjunctival pallor. Normocephalic, atraumatic. No pharyngeal erythema. No thyromegaly. CARDIOVASCULAR: S1 and S2 muffled PULMONARY: diminished breath sounds bilaterally with no wheezing or rhonchi noted. A few faint crackles noted ABDOMEN: soft. Nontender on exam. obese. non-distended, normoactive bowel sounds. No palpable organomegaly. MUSCULOSKELETAL: No joint swelling or deformity. EXTREMITIES: No cyanosis, clubbing, or pedal edema. NEUROLOGICAL: Gross neurological examination did not reveal any focal deficits. SKIN: No rashes. Assessment: Acute onset congestive heart failure with systolic dysfunction, EF 25 to 30% with severe global hypokinesia noted, scheduled to undergo cardiac catheterization 09/13/2024 History of continued ongoing nicotine dependence Morbid obesity with a BMI of 42.4 Hyperlipidemia GI prophylaxis DVT prophylaxis Full code Plan: Recommend to continue with current medications and management with pulmonary and now cardiology following as patient's echo showing severe LV systolic dysfunction and cardiology planning on cardiac catheterization this morning and will await official report. Patient is n.p.o. and will be resumed on diet once cleared by cardiology Pulmonary following as well maintained on IV diuresis and has discontinued antibiotics feeling pneumonia is less likely. Case management/social work consult also for possible LifeVest on discharge, awaiting cardiac catheterization results Will follow-up with repeat labs and await cardiology report and appreciate input and recommendations Patient may likely be here over the weekend Overall prognosis is guarded The impression and plan of care has been dictated as a scribe by Mayte Kumar, nurse practitioner as directed. Dr. Elia MD I have performed a history and examination and MDM of this patient, discussed the same with the dictator, and agree with the dictator's assessment and plan as written ,documented as a scribe. Based on total visit time, I have performed more than 50% of the visit. Any additional findings or plans will be noted. Objective - Vital Signs Vital signs: Vital Signs Temp 97.7 F 09/13/24 07:38 Pulse 81 09/13/24 07:38 Resp 14 09/13/24 07:38 BP 133/81 09/13/24 07:38 Pulse Ox 97 09/13/24 07:38 FiO2 Intake & Output 09/12/24 09/13/24 09/13/24 18:59 06:59 18:59 Intake Total 960 Balance 960 Intake: Oral 960 Other: # Voids 3 - Labs CBC & Chem 7: 09/13/24 05:59 09/13/24 05:59 Labs: Abnormal Lab Results - Last 24 Hours (Table) 09/12/24 09/12/24 Range/Units 04:31 04:31 WBC 12.48 H (4.50-10.00) X 10*3/uL MCHC 31.3 L (32.0-37.0) g/dL RDW 14.6 H (11.5-14.5) % Immature Gran # 0.06 H (0.00-0.04) X 10*3/uL Anion Gap 13.00 H (4.00-12.00) mmol/L Glucose 113 H (70-110) mg/dL Microbiology - Last 24 Hours (Table) 09/09/24 23:15 Blood Culture - Preliminary Blood 09/09/24 23:00 Blood Culture - Preliminary Blood 09/10/24 09:58 Gram Stain - Final Sputum Sputum Culture - Final
[2024-09-14] MEDS: LOSARTAN 50 MG TAB PO SCH (08:03)
[2024-09-14 09:04] VITALS: BP 137/96; PULSE 79; RESP 18; TEMP 98.1
--- NOTE | 2024-09-14 12:44 | P.PN ---
Subjective Progress Note Date: 09/14/24 Principal diagnosis: Reviewed systolic congestive heart failure This is a pleasant 49-year-old female patient with a known history of chronic and ongoing tobacco dependence of 30 years, obesity presented here with complaints of increasing shortness of breath cough congestion and chest heaviness. No fever or chills. No sputum production. Chest x-ray shows cardiomegaly with interstitial opacities bilaterally possible pulmonary edema and/or infection. White count 13.4. Hemoglobin 13.1. Platelets 294. Sodium 139. Potassium 4.6. Bicarb 24. BUN 10. Creatinine 0.8. proBNP 2260. Troponin negative x 1. Viral screen was negative. Procalcitonin negative. Echocardiogram shows severe left ventricular systolic function impairment with an ejection fraction of 25 to 30%. Global hypokinesia. She is seen today in consultation on the regular medical floor. She is currently sitting up in bed. Awake and alert in no acute distress. Denies any worsening shortness of breath, cough or congestion. No chest pain currently. She was given Lasix 40 mg IVP x 1 this morning. She is on ceftriaxone. Heparin for DVT prophylaxis. NicoDerm patch in place. The patient is seen today September 12, 2024 in follow-up on the regular medical floor. She is currently sitting up at the bedside. Awake and alert in no acute distress. Denies any worsening shortness of breath, cough or congestion. She is maintaining good O2 saturations in the 90s on room air. She is breathing quite a bit better today compared to yesterday. White count 12.4. Hemoglobin 13.2. Platelets 299. Sodium 138. Potassium 4.4. Bicarb 22. BUN 12. Creatinine 0.7. Glucose 113. Follow-up chest x-ray reveals marked improvement of the chest with near complete resolution of the interstitial edema. Continued on Lasix 40 mg IV every 12 hours. Heparin for DVT prophylaxis. NicoDerm patch in place. Sputum culture revealed no growth. Blood cultures revealed no growth. Patient was seen today on 09/13/2024, clinically the patient is feeling much better, breathing a lot easier, however the patient needs to have further workup by cardiology. And she may even require a LifeVest. Patient did undergo cardiac catheterization today, and she is found to have normal coronary arteries. Cardiology ordered a LifeVest for this patient, pulmonary rosas doing great, asymptomatic, no cough no wheezing no shortness of breath, follow-up chest x-ray showed dramatic improvement in her pulmonary edema. WBC count today 13.6 hemoglobin is normal basic metabolic profile is normal renal profile is nor mal Seen today on 09/14/2024, patient is doing well, had cardiac catheterization and she was found to have normal coronaries, her LifeVest has been delivered, patient is being considered for possible discharge today and further workup on outpatient basis by cardiology. Patient is on room air, does not seem to be in any distress. Today's labs were reviewed, relatively unremarkable including CBC and renal profile as well as electrolytes Objective - Vital Signs Vital signs: Vital Signs Temp 98.1 F 09/14/24 08:00 Pulse 79 09/14/24 08:00 Resp 18 09/14/24 08:00 BP 137/96 09/14/24 08:00 Pulse Ox 98 09/14/24 08:00 FiO2 Intake & Output 09/13/24 09/14/24 09/14/24 18:59 06:59 18:59 Intake Total 1100 Balance 1100 Weight 97.8 kg Intake: IV 250 Intake, IV Titration 850 Amount Sodium Chloride 0.9% 1, 850 000 ml @ 75 mls/hr IV . [id number] MARLA Rx#:[id number] Other: # Voids 2 1 # Bowel Movements 2 - Exam GENERAL EXAM: 49-year-old female in no distress, on room air HEAD: Normocephalic. EYES: Normal reaction of pupils, equal size. NOSE: Clear with pink turbinates. THROAT: No erythema or exudates. NECK: No masses, no JVD. CHEST: No chest wall deformity. LUNGS: Equal air entry with no crackles, wheeze, rhonchi or dullness. CVS: S1 and S2 normal with no audible murmur, regular rhythm. ABDOMEN: No hepatosplenomegaly, normal bowel sounds, no guarding or rigidity. SKIN: No rashes CENTRAL NERVOUS SYSTEM: Alert and oriented x 3 no gross focal deficit EXTREMITIES no clubbing edema or cyanosis. - Labs CBC & Chem 7: 09/14/24 05:58 09/14/24 05:58 Labs: Abnormal Lab Results - Last 24 Hours (Table) 09/14/24 09/14/24 Range/Units 05:58 05:58 WBC 13.0 H (3.8-10.6) k/uL Neutrophils # 8.1 H (1.3-7.7) k/uL Sodium 136 L (137-145) mmol/L Carbon Dioxide 20 L (22-30) mmol/L BUN 19 H (7-17) mg/dL Glucose 107 H (74-99) mg/dL Assessment and Plan Assessment: Impression: Acute systolic congestive heart failure secondary to nonischemic cardiomyopathy and LV dysfunction Chronic and ongoing tobacco dependence of greater than 30 years Obesity History of anxiety/depression Recommendation: Continue diuretics as ordered by cardiology LifeVest has been delivered Need further cardiac workup on outpatient basis by cardiology Pulmonary rosas I am clearing the patient for discharge Time with Patient: Less than 30
--- NOTE | 2024-09-15 09:07 | CC ---
CARDIAC CATHETERIZATION REPORT INDICATION: Cardiomyopathy with congestive heart failure. PROCEDURE NOTE: After obtaining informed consent, left heart catheterization and coronary angiogram were performed via the right radial artery using standard Noah catheters. The patient tolerated the procedure well without any obvious immediate complications. A TR band will be used for hemostasis. The patient received moderate conscious sedation. Total sedation time was 28 minutes. Right radial artery access was obtained using Seldinger technique, 6-Ugand[place] sheath was placed. Catheters and wires were floated into the ascending aorta under fluoroscopic guidance. The patient received verapamil and heparin per protocol. FINDINGS: 1. Hemodynamics: Central aortic pressure is 130/90 mm. 2. Angiographic data: a.Right coronary artery is a large dominant vessel and is free of stenosis. b.Left main coronary artery is a normal-sized vessel and is free of disease, divides into left anterior descending coronary artery and circumflex coronary artery. c.LAD and its branches and circumflex coronary artery and its branches are free of significant stenosis. CONCLUSIONS: Normal coronary arteries. PLAN: The patient's cardiomyopathy is nonischemic in etiology. We will treat her with aggressive medical therapy. MMODL / IJN: [id number] /
--- NOTE | 2024-09-15 09:09 | PN ---
PROGRESS NOTE SUBJECTIVE: Cris is a 49-year-old lady, who is admitted to the hospital with congestive heart failure and had cardiomyopathy with severe LV systolic dysfunction. She underwent cardiac catheterization by me that revealed severe LV systolic dysfunction, but coronaries were normal. I organized for a LifeVest for her. This morning, she is doing well and is free of symptoms. PHYSICAL EXAMINATION: GENERAL: Comfortable at rest. VITAL SIGNS: Stable. CHEST: Exam reveals good air entry bilaterally. HEART: Reveals first and second heart sounds. No gallop. EXTREMITIES: Examination of the extremities did not reveal any edema. Peripheral pulses are felt. She is going to be discharged home on: 1. Losartan 75 mg daily. 2. Coreg 3.125 b.i.d. 3. Lasix 40 b.i.d. Labs show that her potassium is 4.5, creatinine is 0.7, hemoglobin is 14.1. Right radial artery access site appears normal. ASSESSMENT AND PLAN: Cardiomyopathy with severe systolic heart failure. PLAN: The patient will be discharged home on LifeVest and will be followed up in my office over the next several weeks. MMODL / IJN: [id number] /
--- NOTE | 2024-09-16 12:30 | P.DS ---
Providers Date of admission: 09/09/24 22:21 Expected date of discharge: 09/14/24 Attending physician: Rah Rodrigez Consults: 09/10/24 13:07 Consult Physician Routine Consulting Provider: Renee Abbott Consult Reason/Comments: pneumonia Do you want consulting provider notified?: Yes 09/11/24 11:50 Consult Physician Routine Consulting Provider: Feliberto Chávez Consult Reason/Comments: Chest pain, EF 25-30% Do you want consulting provider notified?: Yes Primary care physician: Hang Sheth Hospital Course: Final diagnosis Acute onset congestive heart failure with systolic dysfunction, EF 25 to 30% with severe global hypokinesia noted, status post cardiac catheterization 09/13/2024 showing normal coronary arteries History of continued ongoing nicotine dependence Morbid obesity with a BMI of 42.4 Hyperlipidemia GI prophylaxis DVT prophylaxis Full code Discharge disposition Patient is being discharged in a stable condition with guarded prognosis to home with a LifeVest. Patient will follow-up with Dr. Sheth in the outpatient setting upon discharge. Patient is to continue with current cardiac medications and close outpatient follow-up with cardiology as scheduled. Total time taken is greater than 35 minutes. Hospital course This is a 49-year-old female who was recently admitted with shortness of breath concerns initially for pneumonia although found to have acute onset of congestive heart failure with systolic dysfunction. EF was noted to be 25 to 30% with severe global hypokinesia noted. Patient being followed by cardiology maintained on medications including IV Lasix scheduled to undergo cardiac catheterization revealing normal coronary arteries. Patient will receive a LifeVest on discharge and has been instructed to follow-up with cardiology in the outpatient setting. Patient reports to feeling well and would like to go home. Patient has been cleared by cardiology. Please refer to other consultation notes for further HPI. Currently no reports of chest pain, shortness of breath, or palpitations. Patient is afebrile. No reports of nausea or vomiting and patient is tolerating diet. Patient will be discharged home today. Guarded prognosis Physical exam: Gen: This is a 49-year-old female who is awake, alert and oriented x 3, well- developed, elderly appearing, morbidly obese HEENT: Head is atraumatic, normocephalic. Pupils equal, round. Sclerae is anicteric. NECK: Supple. No JVD. No lymphadenopathy. No thyromegaly. LUNGS: Diminished breath sounds bilaterally otherwise clear to auscultation. No wheezes or rhonchi. No intercostal retractions. HEART: Regular rate and rhythm. No murmur. ABDOMEN: Soft. Obese bowel sounds are present. No masses. No tenderness. EXTREMITIES: No pedal edema. No calf tenderness. NEUROLOGICAL: Patient is awake, alert and oriented x3. Cranial nerves 2 through 12 are grossly intact. Please refer to medication reconciliation sheet for a list of medications. The impression and plan of care has been dictated by Mayte Kumar, Nurse Practitioner as directed. Dr. Elia MD I have performed a history and examination and MDM of this patient, discussed the same with the dictator, and agree with the dictator's assessment and plan as written ,documented as a scribe. Based on total visit time, I have performed more than 50% of the visit. Patient Condition at Discharge: Fair Plan - Discharge Summary Discharge Rx Participant: No New Discharge Prescriptions: New Nicotine 14Mg/24Hr Patch [Habitrol] 1 patch TRANSDERM DAILY #30 patch carvediloL [Coreg] 3.125 mg PO BID-W/MEALS #60 tab Losartan [Cozaar] 75 mg PO DAILY 30 Days #45 tab Furosemide [Lasix] 40 mg PO BID 30 Days #60 tablet Nitroglycerin Sl Tabs [Nitrostat] 0.4 mg SUBLINGUAL Q5M PRN #20 tab PRN Reason: Chest Pain Continue Albuterol Inhaler [Ventolin Hfa Inhaler] 2 puff INHALATION RT-Q4H PRN PRN Reason: Shortness Of Breath Discontinued Doxycycline Hyclate 100 mg PO BID Discharge Medication List Albuterol Inhaler [Ventolin Hfa Inhaler] 2 puff INHALATION RT-Q4H PRN 09/10/24 [History] Furosemide [Lasix] 40 mg PO BID 30 Days #60 tablet 09/14/24 [Rx] Losartan [Cozaar] 75 mg PO DAILY 30 Days #45 tab 09/14/24 [Rx] Nicotine 14Mg/24Hr Patch [Habitrol] 1 patch TRANSDERM DAILY #30 patch 09/14/24 [Rx] Nitroglycerin Sl Tabs [Nitrostat] 0.4 mg SUBLINGUAL Q5M PRN #20 tab 09/14/24 [Rx] carvediloL [Coreg] 3.125 mg PO BID-W/MEALS #60 tab 09/14/24 [Rx] Follow up Appointment(s)/Referral(s): Hang Sheth MD [Primary Care Provider] - 1-2 days (Please call and schedule follow-up appointment) Burt Borges MD [STAFF PHYSICIAN] - 1 Week (Please call and schedule follow- up appointment) Activity/Diet/Wound Care/Special Instructions: Activity limited until follow-up Follow-up with primary care provider on discharge Follow-up with cardiology in 1 week Continue taking medications as prescribed Continue LifeVest Discharge Disposition: HOME SELF-CARE
--- NOTE | 2024-09-18 13:28 | CDI ---
Documentation Clarification Form Date: 09/18/24 From: Marco A GIBSON RN Phone: [phone] Serve Admit Date: 09/09/2024 10:21:00 PM Patient Name: Cris Noland Visit Number: [id number] Discharge Date: 09/14/2024 12:12:00 PM ATTENTION: The Clinical Documentation Specialists (CDI) and [facility] Coding Staff appreciate your assistance in clarifying documentation. Please respond to the clarification below the line at the bottom and electronically sign. The CDI & [facility] Coding staff will review the response and follow-up if needed. Please note: Queries are made part of the Legal Health Record. If you have any questions, please contact the author of this message via ITS. Dr. Rodrigez The patients white count is elevated (H&P 09/10). Based on this information and the findings below, is there an additional diagnosis that is clinically appropriate for this patient? History/Risk Factors: Leukocytosis was documented in the ED on 09/09. presented to hospital with shortness of breath and cough of several days duration with elevated white cell count on Roxanne was documented in the cardiology consult 09/12 Elevated liver enzymes was documented in the Ed note on 09/09. Acute systolic heart failure was documented in the cardiology consult 09/12 Clinical Indicators: WBC 14.6 on 09/09, repeated values were 13.48, 12.48, 13.63 VS 09/10 T 97.8, HR 105, RR 26, BP 115/64 AST 09/09 48; 09/11 22 ALT 09/09 79; 09/11 53 Alk Phos 09/09 132; 09/11 146 Blood cultures negative x 2 Treatment: CBC daily O2 via NC Zithromax 500 mg IV started 09/09,changed to po on 09/10 dcd 09/11 Rocephin 2gm IVPB q24h started 09/10; dcd 09/11 Is there an additional diagnosis that is clinically appropriate for this patient? [ ] Non-infectious SIRS with acute organ dysfunction (as evidenced by elevated liver enzymes) [ x] Non-infectious SIRS without organ dysfunction [ ] No additional diagnosis/not clinically significant [ ] Other, please specify [ ] Unable to determine SIRS Criteria: 2 or more of the following may indicate SIRS Temperature < 96.8F (36C) or > 101.0F (38.3C) Heart Rate > 90 bpm Respiratory Rate > 20 breaths/min or PaCO2 < 32 mmHg White Blood Cell Count > 12,000 or < 4,000 cells/mm3 or > 10% bands MTDD
--- NOTE | 2024-09-18 13:29 | CDI ---
Documentation Clarification Form Date: 09/18/24 From: Marco A Stone, ARTHUR, RN Phone: [phone] Serve Admit Date: 09/09/2024 10:21:00 PM Patient Name: Cris Noland Visit Number: [id number] Discharge Date: 09/14/2024 12:12:00 PM ATTENTION: The Clinical Documentation Specialists (CDI) and [facility] Coding Staff appreciate your assistance in clarifying documentation. Please respond to the clarification below the line at the bottom and electronically sign. The CDI & [facility] Coding staff will review the response and follow-up if needed. Please note: Queries are made part of the Legal Health Record. If you have any questions, please contact the author of this message via ITS. Dr. Rodrigez Per the lab report the on 09/12 the AST was 48, the ALT was 79. Please clarify if there is an additional diagnosis and/or clinical significance related to this value. History/Risk Factors: 49 yo female admitted with new onset of CHF (DS 09/14) Elevated liver enzymes was documented in the Ed note on 09/09. Clinical indicators: AST 09/09 48; 09/11 22 ALT 09/09 79; 09/11 53 Alk Phos 09/09 132; 09/11 146 Treatment: Liver panel repeated 09/11 Is there an additional diagnosis and/or clinical significance related to the above lab result/information? [ x ] Elevated liver transaminase levels [ ] No additional diagnosis/Not clinically significant [ ] Other, please specify [ ] Unable to determine MTDD
== END 2024-09-14 12:12 | disposition home or self-care (01) | DRG 287 ==
LOC: EC 18:16 → 5NMEDONC 22:21 → 2SICU 09-13 11:19
PROVIDERS: ADMIT Hospitalist; ATTEND Hospitalist
PROC: B2111ZZ Fluoroscopy of Multiple Coronary Arteries using Low Osmolar Contrast (ICD-10-PCS; 2024-09-13)
PROC: 4A023N7 Measurement of Cardiac Sampling and Pressure, Left Heart, Percutaneous Approach (ICD-10-PCS; principal; 2024-09-13 10:10)
DX: I50.23 Acute on chronic systolic (congestive) heart failure (principal); I42.8 Other cardiomyopathies; Z68.41 Body mass index [BMI] 40.0-44.9, adult; F32.A Depression, unspecified; J44.9 Chronic obstructive pulmonary disease, unspecified; R65.10 Systemic inflammatory response syndrome (SIRS) of non-infectious origin without acute organ dysfunction; F17.200 Nicotine dependence, unspecified, uncomplicated; G43.909 Migraine, unspecified, not intractable, without status migrainosus; E66.01 Morbid (severe) obesity due to excess calories; F41.9 Anxiety disorder, unspecified; E78.5 Hyperlipidemia, unspecified; R74.01 Elevation of levels of liver transaminase levels; Z79.899 Other long term (current) drug therapy
CPT/HCPCS: 36415; 71045; 71046; 80048; 80053; 80061; 83735; 83880; 84145; 84484; 85025; 86738; 87040; 87070; 87205; 87449; 87636; 93005; 93306; 93454; 94640; 94760; 96365; 99285